=== PATIENT | female | born 1975 | race American Indian/Alaskan Native ===

== ENCOUNTER 2017-02-07 18:56 | Emergency (ER) | payer MEDICAID ==
[2017-02-07 21:13] LABS: Basophils % (Auto) 0.7 % (0.0-1.8); Eosinophils % (Auto) 1.7 % (0.0-4.3); Hematocrit 35.9 % (30.3-42.9); Hemoglobin 11.5 gm/dl (10.1-14.3); Mean Corpuscular HGB Conc 32 % (30-34); Mean Corpuscular Volume 80 fl (79-97); Platelet Count 359 K/mm3 (140-440); Red Blood Count 4.47 M/mm3 (3.65-5.03); Red Cell Distribution Width 14.6 % (13.2-15.2); White Blood Count 10.3 K/mm3 (4.5-11.0)
[2017-02-07 21:14] LABS: Mean Corpuscular Hemoglobin 26 pg (28-32)
[2017-02-07 21:31] LABS: Anion Gap 19 mmol/L; BUN/Creatinine Ratio 13.75; Blood Urea Nitrogen 11 mg/dL (7-17); Calcium 9.5 mg/dL (8.4-10.2); Carbon Dioxide 23 mmol/L (22-30); Chloride 98.6 mmol/L (98-107); Glucose 97 mg/dL (65-100); Potassium 3.9 mmol/L (3.6-5.0); Sodium 137 mmol/L (137-145)
[2017-02-07 21:57] LABS: Bilirubin,Urine NEG (Negative); Blood,Urine NEG (Negative); Ketones,Urine NEG (Negative); Leukocyte Esterase,Urine NEG (Negative); Mucus,Urine FEW /HPF; Nitrite,Urine NEG (Negative); Protein,Urine <15 mg/dL mg/dL (Negative); Urobilinogen,Urine < 2.0 mg/dL (<2.0)
[2017-02-07] MEDS ORDERED: BENADRYL IV ONE (23:06)
[2017-02-07] MEDS ORDERED: REGLAN IV ONE (23:06)
--- NOTE | 2017-02-08 00:45 | Emergency Department Report ---
ED General Adult HPI - General Chief complaint: Headache Stated complaint: HEADACHE/STIFF NECK BETWEEN BACK/CHEST Time Seen by Provider: 02/07/17 23:04 Source: patient Mode of arrival: Ambulatory Limitations: No Limitations - History of Present Illness Initial comments: Patient is a 41-year-old female presents with headache has been going on for the last 3 days it is an achy type pain she says it is from the back of her head to her neck. She states that it's a 7 out of 10 and radiates her chest nothing makes it better or worse. Patient states that when she woke up today she had a stiff neck is achy around the midline she has full range of motion in her neck. She denies having any fever. She states that sometimes when wakes up she has stiff neck. Stiff neck as a 4 out of 10 makes her neck worse and nothing makes it better. Patient has shows some [id number] medications without relief. - Related Data Home Medications Medication Instructions Recorded Confirmed Last Taken Amoxicillin [Trimox CAP] 500 mg PO TID 06/09/13 06/09/13 06/08/13 20:00 Losartan/Hydrochlorothiazide 1 each PO QDAY 04/22/15 04/22/15 04/22/15 [Hyzaar 100-12.5 TAB] Previous Rx's Medication Instructions Recorded Last Taken Type Amoxicillin/K Clav Tab [Augmentin 1 tab PO BID #20 tablet 06/09/13 Unknown Rx 875MG] Fluticasone Propionate [Flonase] 2 sprays NS DAILY #1 spray.susp 06/09/13 Unknown Rx Loratadine [Claritin] 10 mg PO DAILY #30 tablet 06/09/13 Unknown Rx Prednisone 40 mg PO QDAY #10 tablet 06/09/13 Unknown Rx Promethazine /Codeine 5 ml PO Q6H PRN #120 udc 06/09/13 Unknown Rx [Phenergan/Codeine 6.25-10 mg/5 ml] Ibuprofen [Motrin 800 MG tab] 800 mg PO Q8HR PRN #60 tablet 02/24/15 Unknown Rx HYDROcodone/APAP 10-325 [[place] 1 each PO Q8HR PRN #30 tablet 04/23/15 Unknown Rx 10/325] Methocarbamol [Robaxin TAB] 750 mg PO Q8H PRN #21 tablet 10/21/15 Unknown Rx Diazepam Tab [Valium] 2 mg PO TID PRN #12 tablet 06/27/15 Unknown Rx Methocarbamol [Robaxin TAB] 1,500 mg PO TID PRN #30 tab 06/27/15 Unknown Rx metroNIDAZOLE [Flagyl TAB] 500 mg PO Q12HR #14 tab 07/15/15 Unknown Rx traMADol [Ultram 50 MG tab] 50 mg PO Q6HR PRN #20 tablet 04/11/16 Unknown Rx Allergies Allergy/AdvReac Type Severity Reaction Status Date / Time ibuprofen Allergy Bleeding Verified 08/03/13 01:50 tramadol HCl [From Ultram] Allergy Vomiting Verified 04/12/13 08:00 ED Review of Systems ROS: Stated complaint: HEADACHE/STIFF NECK BETWEEN BACK/CHEST Other details as noted in HPI Constitutional: denies: chills, fever Eyes: denies: eye pain, eye discharge, vision change ENT: denies: ear pain, throat pain Respiratory: denies: cough, shortness of breath, wheezing Cardiovascular: denies: chest pain, palpitations Endocrine: no symptoms reported Gastrointestinal: denies: abdominal pain, nausea, diarrhea Genitourinary: denies: urgency, dysuria, discharge Musculoskeletal: denies: back pain, joint swelling, arthralgia Skin: denies: rash, lesions Neurological: headache Psychiatric: denies: anxiety, depression Hematological/Lymphatic: denies: easy bleeding, easy bruising ED Past Medical Hx - Past Medical History Previous Medical History?: Yes Hx Hypertension: Yes Hx GERD: Yes Hx Kidney Stones: Yes (stent placed 07-25-2013) Additional medical history: ovarian cyst - Surgical History Past Surgical History?: Yes Additional Surgical History: Lithotripsy, renal stent, Endometrial Oblation. Tubal ligation - Social History Smoking Status: Never Smoker Substance Use Type: None - Medications Home Medications: Home Medications Medication Instructions Recorded Confirmed Last Taken Type Amoxicillin [Trimox CAP] 500 mg PO TID 06/09/13 06/09/13 06/08/13 20:00 History Amoxicillin/K Clav Tab [Augmentin 1 tab PO BID #20 tablet 06/09/13 Unknown Rx 875MG] Fluticasone Propionate [Flonase] 2 sprays NS DAILY #1 spray.susp 06/09/13 Unknown Rx Loratadine [Claritin] 10 mg PO DAILY #30 tablet 06/09/13 Unknown Rx Prednisone 40 mg PO QDAY #10 tablet 06/09/13 Unknown Rx Promethazine /Codeine 5 ml PO Q6H PRN #120 udc 06/09/13 Unknown Rx [Phenergan/Codeine 6.25-10 mg/5 ml] Ibuprofen [Motrin 800 MG tab] 800 mg PO Q8HR PRN #60 tablet 02/24/15 Unknown Rx Losartan/Hydrochlorothiazide 1 each PO QDAY 04/22/15 04/22/15 04/22/15 History [Hyzaar 100-12.5 TAB] HYDROcodone/APAP 10-325 [[place] 1 each PO Q8HR PRN #30 tablet 04/23/15 Unknown Rx 10/325] Methocarbamol [Robaxin TAB] 750 mg PO Q8H PRN #21 tablet 04/23/15 Unknown Rx Diazepam Tab [Valium] 2 mg PO TID PRN #12 tablet 06/27/15 Unknown Rx Methocarbamol [Robaxin TAB] 1,500 mg PO TID PRN #30 tab 06/27/15 Unknown Rx metroNIDAZOLE [Flagyl TAB] 500 mg PO Q12HR #14 tab 07/15/15 Unknown Rx traMADol [Ultram 50 MG tab] 50 mg PO Q6HR PRN #20 tablet 04/11/16 Unknown Rx ED Physical Exam - General Limitations: No Limitations General appearance: alert, in no apparent distress - Head Head exam: Present: atraumatic, normocephalic - Eye Eye exam: Present: normal appearance - ENT ENT exam: Present: mucous membranes moist - Neck Neck exam: Present: normal inspection - Respiratory Respiratory exam: Present: normal lung sounds bilaterally. Absent: respiratory distress - Cardiovascular Cardiovascular Exam: Present: regular rate, normal rhythm. Absent: systolic murmur, diastolic murmur, rubs, gallop - GI/Abdominal GI/Abdominal exam: Present: soft, normal bowel sounds - Extremities Exam Extremities exam: Present: normal inspection - Back Exam Back exam: Present: normal inspection - Neurological Exam Neurological exam: Present: alert, oriented X3 - Psychiatric Psychiatric exam: Present: normal affect, normal mood - Skin Skin exam: Present: warm, dry, intact, normal color. Absent: rash ED Course Vital Signs 02/07/17 02/08/17 20:33 01:26 Temperature 99 F Pulse Rate 90 86 Respiratory 18 17 Rate Blood Pressure 193/126 Blood Pressure 147/101 [Left] O2 Sat by Pulse 99 99 Oximetry - Reevaluation(s) Reevaluation #1: 02/08/17 00:24 Patient is feeling better after IV intervention and she is no significant findings on blood work I will send patient home. ED Medical Decision Making - Lab Data Result diagrams: 02/07/17 20:58 02/07/17 20:58 Lab Results 02/07/17 02/07/17 02/07/17 Range/Units 20:58 20:58 20:58 WBC 10.3 (4.5-11.0) K/mm3 RBC 4.47 (3.65-5.03) M/mm3 Hgb 11.5 (10.1-14.3) gm/dl Hct 35.9 (30.3-42.9) % MCV 80 (79-97) fl MCH 26 L (28-32) pg MCHC 32 (30-34) % RDW 14.6 (13.2-15.2) % Plt Count 359 (140-440) K/mm3 Lymph % (Auto) 38.9 H (13.4-35.0) % [place] % (Auto) 5.2 (0.0-7.3) % Eos % (Auto) 1.7 (0.0-4.3) % Baso % (Auto) 0.7 (0.0-1.8) % Lymph # 4.0 (1.2-5.4) K/mm3 [place] # 0.5 (0.0-0.8) K/mm3 Eos # 0.2 (0.0-0.4) K/mm3 Baso # 0.1 (0.0-0.1) K/mm3 Seg Neutrophils % 53.5 (40.0-70.0) % Seg Neutrophils # 5.5 (1.8-7.7) K/mm3 Sodium 137 (137-145) mmol/L Potassium 3.9 (3.6-5.0) mmol/L Chloride 98.6 (98-107) mmol/L Carbon Dioxide 23 (22-30) mmol/L Anion Gap 19 mmol/L BUN 11 (7-17) mg/dL Creatinine 0.8 (0.7-1.2) mg/dL Estimated GFR > 60 ml/min BUN/Creatinine Ratio 13.75 % Glucose 97 (65-100) mg/dL Calcium 9.5 (8.4-10.2) mg/dL Troponin T < 0.010 (0.00-0.029) ng/mL HCG, Qual Negative (Negative) Urine Color (Yellow) Urine Turbidity (Clear) Urine pH (5.0-7.0) Ur Specific Chloe (1.003-1.030) Urine Protein (Negative) mg/dL Urine Glucose (UA) (Negative) mg/dL Urine Ketones (Negative) mg/dL Urine Blood (Negative) Urine Nitrite (Negative) Urine Bilirubin (Negative) Urine Urobilinogen (<2.0) mg/dL Ur Leukocyte Esterase (Negative) Urine WBC (Auto) (0.0-6.0) /HPF Urine RBC (Auto) (0.0-6.0) /HPF U Epithel Cells (Auto) (0-13.0) /HPF Urine Mucus /HPF 02/07/17 02/08/17 Range/Units 21:30 01:07 WBC (4.5-11.0) K/mm3 RBC (3.65-5.03) M/mm3 Hgb (10.1-14.3) gm/dl Hct (30.3-42.9) % MCV (79-97) fl MCH (28-32) pg MCHC (30-34) % RDW (13.2-15.2) % Plt Count (140-440) K/mm3 Lymph % (Auto) (13.4-35.0) % [place] % (Auto) (0.0-7.3) % Eos % (Auto) (0.0-4.3) % Baso % (Auto) (0.0-1.8) % Lymph # (1.2-5.4) K/mm3 [place] # (0.0-0.8) K/mm3 Eos # (0.0-0.4) K/mm3 Baso # (0.0-0.1) K/mm3 Seg Neutrophils % (40.0-70.0) % Seg Neutrophils # (1.8-7.7) K/mm3 Sodium (137-145) mmol/L Potassium (3.6-5.0) mmol/L Chloride (98-107) mmol/L Carbon Dioxide (22-30) mmol/L Anion Gap mmol/L BUN (7-17) mg/dL Creatinine (0.7-1.2) mg/dL Estimated GFR ml/min BUN/Creatinine Ratio % Glucose (65-100) mg/dL Calcium (8.4-10.2) mg/dL Troponin T < 0.010 (0.00-0.029) ng/mL HCG, Qual (Negative) Urine Color Straw (Yellow) Urine Turbidity Clear (Clear) Urine pH 6.0 (5.0-7.0) Ur Specific [place] 1.013 (1.003-1.030) Urine Protein <15 mg/dl (Negative) mg/dL Urine Glucose (UA) Neg (Negative) mg/dL Urine Ketones Neg (Negative) mg/dL Urine Blood Neg (Negative) Urine Nitrite Neg (Negative) Urine Bilirubin Neg (Negative) Urine Urobilinogen < 2.0 (<2.0) mg/dL Ur Leukocyte Esterase Neg (Negative) Urine WBC (Auto) 1.0 (0.0-6.0) /HPF Urine RBC (Auto) 1.0 (0.0-6.0) /HPF U Epithel Cells (Auto) 1.0 (0-13.0) /HPF Urine Mucus Few /HPF - Radiology Data Radiology results: report reviewed, image reviewed Chest x-ray shows no acute pulmonary disease - Medical Decision Making Chief medical diagnosis: Tension headache Differential local diagnosis: Migraine headache,Cluster headache, hyponatremia I will get CBC, CMP, urinalysis, urine iv reglan, iv fluids and iv benadryl. Patient's better after IV Reglan and IV Benadryl. Patient's symptoms are most likely symptoms of a tension headache. She's had headaches like this before in the past. Patient has no neurologic deficits. Indication showed decision- making to send patient home. Initial verbal discharge instructions were given. Critical care attestation.: If time is entered above; I have spent that time in minutes in the direct care of this critically ill patient, excluding procedure time. ED Disposition Clinical Impression: Tension headache Disposition: DC-01 TO HOME OR SELFCARE Is pt being admited?: No Does the pt Need Aspirin: No Condition: Stable Instructions: Tension Headache (ED) Referrals: BARBARA HUERTA MD [Primary Care Provider] - 3-5 Days
[2017-02-08 01:27] VITALS: BP 147/101
--- NOTE | 2017-02-08 07:38 | XRay Report ---
ROUTINE CHEST, TWO VIEWS: HISTORY: chest pain. The trachea, heart, mediastinal contour, lung howard and bony thorax are unremarkable. IMPRESSION: Unremarkable chest x-ray. No significant change since 06/27/15.
== END 2017-02-08 01:25 | disposition home or self-care (01) ==
LOC: ED 18:56
DX: G44.209 Tension-type headache, unspecified, not intractable (principal); I10 Essential (primary) hypertension; K21.9 Gastro-esophageal reflux disease without esophagitis; Z88.6 Allergy status to analgesic agent
CPT/HCPCS: 36415; 71020; 80048; 81001; 84484; 84703; 85025; 93005; 93010; 96374; 96375; 99285; J1200; J2765

== ENCOUNTER 2017-04-28 18:18 | Emergency (ER) | payer MEDICAID ==
[2017-04-28 18:44] VITALS: BP 175/100
[2017-04-28 19:34] LABS: Basophils % (Auto) 0.5 % (0.0-1.8); Hematocrit 35.7 % (30.3-42.9); Hemoglobin 11.8 gm/dl (10.1-14.3); Mean Corpuscular HGB Conc 33 % (30-34); Mean Corpuscular Hemoglobin 26 pg (28-32); Mean Corpuscular Volume 80 fl (79-97); Platelet Count 362 K/mm3 (140-440); Red Blood Count 4.45 M/mm3 (3.65-5.03); Red Cell Distribution Width 14.9 % (13.2-15.2); White Blood Count 11.8 K/mm3 (4.5-11.0)
[2017-04-28 19:57] LABS: Anion Gap 21 mmol/L; BUN/Creatinine Ratio 14; Blood Urea Nitrogen 11 mg/dL (7-17); Calcium 9.5 mg/dL (8.4-10.2); Carbon Dioxide 22 mmol/L (22-30); Chloride 99.3 mmol/L (98-107); Glucose 93 mg/dL (65-100); Potassium 3.8 mmol/L (3.6-5.0); Sodium 138 mmol/L (137-145)
== END 2017-04-28 22:10 | disposition left against medical advice (07) ==
LOC: ED 18:18
DX: R51 Headache (principal); R19.7 Diarrhea, unspecified; Z53.21 Procedure and treatment not carried out due to patient leaving prior to being seen by health care provider
CPT/HCPCS: 36415; 80048; 82962; 84484; 85025; 93005; 93010

== ENCOUNTER 2017-06-14 09:33 | Emergency (ER) | payer MEDICAID ==
[2017-06-14 10:01] VITALS: BP 149/101
--- NOTE | 2017-06-14 11:15 | Emergency Department Report ---
ED General Adult HPI - General Chief complaint: Upper Respiratory Infection Stated complaint: COUGH Time Seen by Provider: 06/14/17 10:11 Source: patient Mode of arrival: Ambulatory Limitations: No Limitations - History of Present Illness Initial comments: 41 year old female is in the ED complaining of sinus congestion, sore throat, dry intermittent cough for the past 5 days. States that she's been taking over- the-counter medication including NyQuil with minimal relief. And states now she has substernal chest pain associated with a dry cough. Denies fever, chills , shortness of breath, abdominal pain -: Gradual, days(s) (5) - Related Data Home Medications Medication Instructions Recorded Confirmed Last Taken Amoxicillin [Trimox CAP] 500 mg PO TID 06/09/13 06/09/13 06/08/13 20:00 Losartan/Hydrochlorothiazide 1 each PO QDAY 04/22/15 04/22/15 04/22/15 [Hyzaar 100-12.5 TAB] Previous Rx's Medication Instructions Recorded Last Taken Type Amoxicillin/K Clav Tab [Augmentin 1 tab PO BID #20 tablet 06/09/13 Unknown Rx 875MG] Fluticasone Propionate [Flonase] 2 sprays NS DAILY #1 spray.susp 06/09/13 Unknown Rx Loratadine [Claritin] 10 mg PO DAILY #30 tablet 06/09/13 Unknown Rx Prednisone 40 mg PO QDAY #10 tablet 06/09/13 Unknown Rx Promethazine /Codeine 5 ml PO Q6H PRN #120 udc 06/09/13 Unknown Rx [Phenergan/Codeine 6.25-10 mg/5 ml] Ibuprofen [Motrin 800 MG tab] 800 mg PO Q8HR PRN #60 tablet 02/24/15 Unknown Rx HYDROcodone/APAP 10-325 [[place] 1 each PO Q8HR PRN #30 tablet 04/23/15 Unknown Rx 10/325] Methocarbamol [Robaxin TAB] 750 mg PO Q8H PRN #21 tablet 04/23/15 Unknown Rx Diazepam Tab [Valium] 2 mg PO TID PRN #12 tablet 06/27/15 Unknown Rx Methocarbamol [Robaxin TAB] 1,500 mg PO TID PRN #30 tab 06/27/15 Unknown Rx metroNIDAZOLE [Flagyl TAB] 500 mg PO Q12HR #14 tab 07/15/15 Unknown Rx traMADol [Ultram 50 MG tab] 50 mg PO Q6HR PRN #20 tablet 04/11/16 Unknown Rx ALBUTEROL Inhaler [ProAir HFA 2 puff IH QID PRN #1 inhalation 06/14/17 Unknown Rx Inhaler] Azithromycin [Zithromax Z-SHU] 250 mg PO QDAY #6 tablet 06/14/17 Unknown Rx Codeine Phosphate/Guaifenesin 5 ml PO QDAY #120 liquid 06/14/17 Unknown Rx [Guaifen-Codeine 100-10 mg/5 ml] Prednisone [predniSONE 10 mg 10 mg PO .TAPER #1 tab.ds.pk 06/14/17 Unknown Rx (6-Day Pack, 21 Tabs)] Allergies Allergy/AdvReac Type Severity Reaction Status Date / Time ibuprofen Allergy Bleeding Verified 08/03/13 01:50 tramadol HCl [From Ultram] Allergy Vomiting Verified 04/12/13 08:00 ED Review of Systems ROS: Stated complaint: COUGH Other details as noted in HPI Constitutional: denies: chills, fever Eyes: denies: eye pain, eye discharge, vision change ENT: throat pain, congestion. denies: ear pain Respiratory: cough. denies: shortness of breath, wheezing Cardiovascular: denies: chest pain, palpitations Endocrine: no symptoms reported Gastrointestinal: denies: abdominal pain, nausea, diarrhea Genitourinary: denies: urgency, dysuria, discharge Musculoskeletal: denies: back pain, joint swelling, arthralgia Skin: denies: rash, lesions Neurological: denies: headache, weakness, paresthesias Psychiatric: denies: anxiety, depression Hematological/Lymphatic: denies: easy bleeding, easy bruising ED Past Medical Hx - Past Medical History Previous Medical History?: Yes Hx Hypertension: Yes Hx Diabetes: Yes Hx GERD: Yes Hx Kidney Stones: Yes (stent placed 07-25-2013) Additional medical history: ovarian cyst - Surgical History Past Surgical History?: Yes Additional Surgical History: Lithotripsy, renal stent, Endometrial Oblation. Tubal ligation - Social History Smoking Status: Never Smoker Substance Use Type: Alcohol, Prescribed - Medications Home Medications: Home Medications Medication Instructions Recorded Confirmed Last Taken Type Amoxicillin [Trimox CAP] 500 mg PO TID 12/07/13 12/07/13 12/06/13 20:00 History Amoxicillin/K Clav Tab [Augmentin 1 tab PO BID #20 tablet 06/09/13 Unknown Rx 875MG] Fluticasone Propionate [Flonase] 2 sprays NS DAILY #1 spray.susp 06/09/13 Unknown Rx Loratadine [Claritin] 10 mg PO DAILY #30 tablet 06/09/13 Unknown Rx Prednisone 40 mg PO QDAY #10 tablet 06/09/13 Unknown Rx Promethazine /Codeine 5 ml PO Q6H PRN #120 udc 06/09/13 Unknown Rx [Phenergan/Codeine 6.25-10 mg/5 ml] Ibuprofen [Motrin 800 MG tab] 800 mg PO Q8HR PRN #60 tablet 02/24/15 Unknown Rx Losartan/Hydrochlorothiazide 1 each PO QDAY 04/22/15 04/22/15 04/22/15 History [Hyzaar 100-12.5 TAB] HYDROcodone/APAP 10-325 [[place] 1 each PO Q8HR PRN #30 tablet 04/23/15 Unknown Rx 10/325] Methocarbamol [Robaxin TAB] 750 mg PO Q8H PRN #21 tablet 04/23/15 Unknown Rx Diazepam Tab [Valium] 2 mg PO TID PRN #12 tablet 06/27/15 Unknown Rx Methocarbamol [Robaxin TAB] 1,500 mg PO TID PRN #30 tab 06/27/15 Unknown Rx metroNIDAZOLE [Flagyl TAB] 500 mg PO Q12HR #14 tab 07/15/15 Unknown Rx traMADol [Ultram 50 MG tab] 50 mg PO Q6HR PRN #20 tablet 04/11/16 Unknown Rx ALBUTEROL Inhaler [ProAir HFA 2 puff IH QID PRN #1 inhalation 06/14/17 Unknown Rx Inhaler] Azithromycin [Zithromax Z-SHU] 250 mg PO QDAY #6 tablet 06/14/17 Unknown Rx Codeine Phosphate/Guaifenesin 5 ml PO QDAY #120 liquid 06/14/17 Unknown Rx [Guaifen-Codeine 100-10 mg/5 ml] Prednisone [predniSONE 10 mg 10 mg PO .TAPER #1 tab.ds.pk 06/14/17 Unknown Rx (6-Day Pack, 21 Tabs)] ED Physical Exam - General Limitations: No Limitations General appearance: alert, in no apparent distress - Head Head exam: Present: atraumatic, normocephalic - Eye Eye exam: Present: normal appearance - ENT ENT exam: Present: normal orophraynx, mucous membranes moist - Neck Neck exam: Present: normal inspection - Respiratory Respiratory exam: Present: normal lung sounds bilaterally. Absent: respiratory distress, wheezes, rales, rhonchi, stridor - Cardiovascular Cardiovascular Exam: Present: regular rate, normal rhythm. Absent: systolic murmur, diastolic murmur, rubs, gallop - GI/Abdominal GI/Abdominal exam: Present: soft, normal bowel sounds - Extremities Exam Extremities exam: Present: normal inspection - Back Exam Back exam: Present: normal inspection - Neurological Exam Neurological exam: Present: alert, oriented X3 - Psychiatric Psychiatric exam: Present: normal affect, normal mood - Skin Skin exam: Present: warm, dry, intact, normal color. Absent: rash ED Course Vital Signs 06/14/17 09:58 Temperature 98.7 F Pulse Rate 98 H Respiratory 20 Rate Blood Pressure 149/101 O2 Sat by Pulse 98 Oximetry ED Medical Decision Making - Medical Decision Making patient is resting comfortably. appears to be consistent with URI and bronchitis. VSS for DC. NAD at this time. Critical care attestation.: If time is entered above; I have spent that time in minutes in the direct care of this critically ill patient, excluding procedure time. ED Disposition Clinical Impression: URI, acute, Acute bronchitis Disposition: DC- TO HOME OR SELFCARE Is pt being admited?: No Does the pt Need Aspirin: No Condition: Good Instructions: Acute Bronchitis (ED) Prescriptions: ALBUTEROL Inhaler [ProAir HFA Inhaler] 2 puff IH QID PRN #1 inhalation PRN Reason: Shortness Of Breath Azithromycin [Zithromax Z-SHU] 250 mg PO QDAY #6 tablet Codeine Phosphate/Guaifenesin [Guaifen-Codeine 100-10 mg/5 ml] 5 ml PO QDAY # 120 liquid Prednisone [predniSONE 10 mg (6-Day Pack, 21 Tabs)] 10 mg PO .TAPER #1 tab.ds.pk Referrals: WILMA HANNAH MD [Primary Care Provider] - 3-5 Days Forms: Work/School Release Form(ED) Time of Disposition: 11:16
== END 2017-06-14 11:27 | disposition home or self-care (01) ==
LOC: ED 09:33
DX: J20.9 Acute bronchitis, unspecified (principal); J06.9 Acute upper respiratory infection, unspecified; I10 Essential (primary) hypertension; E11.9 Type 2 diabetes mellitus without complications; K21.9 Gastro-esophageal reflux disease without esophagitis; Z98.51 Tubal ligation status; Z88.8 Allergy status to other drugs, medicaments and biological substances
CPT/HCPCS: 99282

== ENCOUNTER 2017-09-17 15:23 | Emergency (ER) | payer MEDICAID ==
[2017-09-17 15:35] VITALS: BP 158/106
[2017-09-17 16:13] LABS: Bilirubin,Urine NEG (Negative); Blood,Urine NEG (Negative); Color,Urine Yellow (Yellow); Mucus,Urine FEW /HPF; Protein,Urine <15 mg/dL mg/dL (Negative); Urobilinogen,Urine < 2.0 mg/dL (<2.0)
[2017-09-17 16:30] LABS: Hematocrit 36.6 % (30.3-42.9); Hemoglobin 11.7 gm/dl (10.1-14.3); Mean Corpuscular HGB Conc 32 % (30-34); Mean Corpuscular Hemoglobin 26 pg (28-32); Mean Corpuscular Volume 81 fl (79-97); Platelet Count 391 K/mm3 (140-440); Red Blood Count 4.49 M/mm3 (3.65-5.03); Red Cell Distribution Width 14.4 % (13.2-15.2)
[2017-09-17 16:36] LABS: BUN/Creatinine Ratio 13; Blood Urea Nitrogen 9 mg/dL (7-17); Calcium 9.2 mg/dL (8.4-10.2); Hemolysis Index 32
== END 2017-09-17 15:57 | disposition left against medical advice (07) ==
LOC: ED 15:23
DX: R51 Headache (principal); Z53.21 Procedure and treatment not carried out due to patient leaving prior to being seen by health care provider
CPT/HCPCS: 36415; 80048; 81001; 85027

== ENCOUNTER 2017-12-18 16:04 | Emergency (ER) | payer MEDICAID ==
[2017-12-18 16:15] VITALS: BP 159/99
[2017-12-18] MEDS ORDERED: TYLENOL PO ONE (16:49)
--- NOTE | 2017-12-18 16:55 | Emergency Department Report ---
ED ENT HPI - General Chief complaint: Dental/Oral Stated complaint: TOOTHPAIN Time Seen by Provider: 12/18/17 16:48 Source: patient Mode of arrival: Ambulatory Limitations: No Limitations - History of Present Illness Initial comments: This is a 42-year-old female nontoxic, well nourished in appearance, no acute signs of distress presents to the ED with c/o of left upper toothache 4 weeks. Patient stated has seen her deniest and was prescribed amoxicillin and was instructed to return for a procedure but patient never came in. Patient stated that pain has reoccurred. Patient stated that pain radiates from his job to his left side of head. Patient otherwise denies any head trauma. Patient describes toothache as aching level of 8 out of 10. Patient denies any facial swelling. Patient denies any numbness, tingling, fever, chills, headache, stiff neck, abdominal pain, chest pain, shortness of breath. Patient states allergies to ibuprofen and tramadol. Past medical history includes GERD, diabetes hypertension kidney stones. MD complaint: tooth pain -: week(s) (4) Location: tooth # 1 - pain here Severity: mild Severity scale (0 -10): 8 Quality: aching Consistency: constant Improves with: none Worsens with: none Associated Symptoms: gum swelling, toothache. denies: fever, cough, pain with swallowing, sore throat, tinnitus, hearing loss, discharge from ear, rhinorrhea - Related Data Home Medications Medication Instructions Recorded Confirmed Last Taken Amoxicillin [Trimox CAP] 500 mg PO TID 06/09/13 06/09/13 06/08/13 20:00 Losartan/Hydrochlorothiazide 1 each PO QDAY 04/22/15 04/22/15 04/22/15 [Hyzaar 100-12.5 TAB] Previous Rx's Medication Instructions Recorded Last Taken Type Amoxicillin/K Clav Tab [Augmentin 1 tab PO BID #20 tablet 06/09/13 Unknown Rx 875MG] Fluticasone Propionate [Flonase] 2 sprays NS DAILY #1 spray.susp 06/09/13 Unknown Rx Loratadine [Claritin] 10 mg PO DAILY #30 tablet 06/09/13 Unknown Rx Prednisone 40 mg PO QDAY #10 tablet 06/09/13 Unknown Rx Promethazine /Codeine 5 ml PO Q6H PRN #120 udc 06/09/13 Unknown Rx [Phenergan/Codeine 6.25-10 mg/5 ml] Ibuprofen [Motrin 800 MG tab] 800 mg PO Q8HR PRN #60 tablet 02/24/15 Unknown Rx HYDROcodone/APAP 10-325 [[place] 1 each PO Q8HR PRN #30 tablet 04/23/15 Unknown Rx 10/325] Methocarbamol [Robaxin TAB] 750 mg PO Q8H PRN #21 tablet 04/23/15 Unknown Rx Diazepam Tab [Valium] 2 mg PO TID PRN #12 tablet 06/27/15 Unknown Rx Methocarbamol [Robaxin TAB] 1,500 mg PO TID PRN #30 tab 06/27/15 Unknown Rx metroNIDAZOLE [Flagyl TAB] 500 mg PO Q12HR #14 tab 07/15/15 Unknown Rx traMADol [Ultram 50 MG tab] 50 mg PO Q6HR PRN #20 tablet 04/11/16 Unknown Rx ALBUTEROL Inhaler [ProAir HFA 2 puff IH QID PRN #1 inhalation 06/14/17 Unknown Rx Inhaler] Azithromycin [Zithromax Z-SHU] 250 mg PO QDAY #6 tablet 06/14/17 Unknown Rx Codeine Phosphate/Guaifenesin 5 ml PO QDAY #120 liquid 06/14/17 Unknown Rx [Guaifen-Codeine 100-10 mg/5 ml] Prednisone [predniSONE 10 mg 10 mg PO .TAPER #1 tab.ds.pk 06/14/17 Unknown Rx (6-Day Pack, 21 Tabs)] Acetaminophen/Codeine [Tylenol 1 tab PO Q6H PRN #14 tab 12/18/17 Unknown Rx /Codeine # 3 tab] Amoxicillin/K Clav Tab [Augmentin 1 tab PO Q12HR #20 tab 12/18/17 Unknown Rx 875 mg] Chlorhexidine Mouthwash [Peridex] 15 ml MM BID #1 bottle 12/18/17 Unknown Rx Allergies Allergy/AdvReac Type Severity Reaction Status Date / Time ibuprofen Allergy Bleeding Verified 08/03/13 01:50 tramadol HCl [From Ultram] Allergy Vomiting Verified 04/12/13 08:00 ED Dental HPI - General Chief complaint: Dental/Oral Stated complaint: TOOTHPAIN Time Seen by Provider: 12/18/17 16:48 Source: patient Mode of arrival: Ambulatory Limitations: No Limitations - Related Data Home Medications Medication Instructions Recorded Confirmed Last Taken Amoxicillin [Trimox CAP] 500 mg PO TID 06/09/13 06/09/13 06/08/13 20:00 Losartan/Hydrochlorothiazide 1 each PO QDAY 04/22/15 04/22/15 04/22/15 [Hyzaar 100-12.5 TAB] Previous Rx's Medication Instructions Recorded Last Taken Type Amoxicillin/K Clav Tab [Augmentin 1 tab PO BID #20 tablet 06/09/13 Unknown Rx 875MG] Fluticasone Propionate [Flonase] 2 sprays NS DAILY #1 spray.susp 06/09/13 Unknown Rx Loratadine [Claritin] 10 mg PO DAILY #30 tablet 06/09/13 Unknown Rx Prednisone 40 mg PO QDAY #10 tablet 06/09/13 Unknown Rx Promethazine /Codeine 5 ml PO Q6H PRN #120 udc 06/09/13 Unknown Rx [Phenergan/Codeine 6.25-10 mg/5 ml] Ibuprofen [Motrin 800 MG tab] 800 mg PO Q8HR PRN #60 tablet 02/24/15 Unknown Rx HYDROcodone/APAP 10-325 [[place] 1 each PO Q8HR PRN #30 tablet 04/23/15 Unknown Rx 10/325] Methocarbamol [Robaxin TAB] 750 mg PO Q8H PRN #21 tablet 04/23/15 Unknown Rx Diazepam Tab [Valium] 2 mg PO TID PRN #12 tablet 06/27/15 Unknown Rx Methocarbamol [Robaxin TAB] 1,500 mg PO TID PRN #30 tab 06/27/15 Unknown Rx metroNIDAZOLE [Flagyl TAB] 500 mg PO Q12HR #14 tab 07/15/15 Unknown Rx traMADol [Ultram 50 MG tab] 50 mg PO Q6HR PRN #20 tablet 04/11/16 Unknown Rx ALBUTEROL Inhaler [ProAir HFA 2 puff IH QID PRN #1 inhalation 06/14/17 Unknown Rx Inhaler] Azithromycin [Zithromax Z-SHU] 250 mg PO QDAY #6 tablet 06/14/17 Unknown Rx Codeine Phosphate/Guaifenesin 5 ml PO QDAY #120 liquid 06/14/17 Unknown Rx [Guaifen-Codeine 100-10 mg/5 ml] Prednisone [predniSONE 10 mg 10 mg PO .TAPER #1 tab.ds.pk 06/14/17 Unknown Rx (6-Day Pack, 21 Tabs)] Acetaminophen/Codeine [Tylenol 1 tab PO Q6H PRN #14 tab 12/18/17 Unknown Rx /Codeine # 3 tab] Amoxicillin/K Clav Tab [Augmentin 1 tab PO Q12HR #20 tab 12/18/17 Unknown Rx 875 mg] Chlorhexidine Mouthwash [Peridex] 15 ml MM BID #1 bottle 12/18/17 Unknown Rx Allergies Allergy/AdvReac Type Severity Reaction Status Date / Time ibuprofen Allergy Bleeding Verified 08/03/13 01:50 tramadol HCl [From Ultram] Allergy Vomiting Verified 04/12/13 08:00 ED Review of Systems ROS: Stated complaint: TOOTHPAIN Other details as noted in HPI Constitutional: denies: chills, fever Eyes: denies: eye pain, eye discharge, vision change ENT: dental pain. denies: ear pain, throat pain Respiratory: denies: cough, shortness of breath, wheezing Cardiovascular: denies: chest pain, palpitations Endocrine: no symptoms reported Gastrointestinal: denies: abdominal pain, nausea, diarrhea Genitourinary: denies: urgency, dysuria, discharge Musculoskeletal: denies: back pain, joint swelling, arthralgia Skin: denies: rash, lesions Neurological: denies: headache, weakness, paresthesias Psychiatric: denies: anxiety, depression Hematological/Lymphatic: denies: easy bleeding, easy bruising ED Past Medical Hx - Past Medical History Hx Hypertension: Yes Hx Diabetes: Yes Hx GERD: Yes Hx Kidney Stones: Yes (stent placed 07-25-2013) Hx Psychiatric Treatment: Yes (anxiety) Additional medical history: ovarian cyst - Surgical History Additional Surgical History: Lithotripsy, renal stent, Endometrial Oblation. Tubal ligation - Social History Smoking Status: Never Smoker Substance Use Type: None - Medications Home Medications: Home Medications Medication Instructions Recorded Confirmed Last Taken Type Amoxicillin [Trimox CAP] 500 mg PO TID 06/09/13 06/09/13 06/08/13 20:00 History Amoxicillin/K Clav Tab [Augmentin 1 tab PO BID #20 tablet 06/09/13 Unknown Rx 875MG] Fluticasone Propionate [Flonase] 2 sprays NS DAILY #1 spray.susp 06/09/13 Unknown Rx Loratadine [Claritin] 10 mg PO DAILY #30 tablet 06/09/13 Unknown Rx Prednisone 40 mg PO QDAY #10 tablet 06/09/13 Unknown Rx Promethazine /Codeine 5 ml PO Q6H PRN #120 udc 06/09/13 Unknown Rx [Phenergan/Codeine 6.25-10 mg/5 ml] Ibuprofen [Motrin 800 MG tab] 800 mg PO Q8HR PRN #60 tablet 02/24/15 Unknown Rx Losartan/Hydrochlorothiazide 1 each PO QDAY 04/22/15 04/22/15 04/22/15 History [Hyzaar 100-12.5 TAB] HYDROcodone/APAP 10-325 [[place] 1 each PO Q8HR PRN #30 tablet 04/23/15 Unknown Rx 10/325] Methocarbamol [Robaxin TAB] 750 mg PO Q8H PRN #21 tablet 04/23/15 Unknown Rx Diazepam Tab [Valium] 2 mg PO TID PRN #12 tablet 06/27/15 Unknown Rx Methocarbamol [Robaxin TAB] 1,500 mg PO TID PRN #30 tab 06/27/15 Unknown Rx metroNIDAZOLE [Flagyl TAB] 500 mg PO Q12HR #14 tab 07/15/15 Unknown Rx traMADol [Ultram 50 MG tab] 50 mg PO Q6HR PRN #20 tablet 04/11/16 Unknown Rx ALBUTEROL Inhaler [ProAir HFA 2 puff IH QID PRN #1 inhalation 06/14/17 Unknown Rx Inhaler] Azithromycin [Zithromax Z-SHU] 250 mg PO QDAY #6 tablet 06/14/17 Unknown Rx Codeine Phosphate/Guaifenesin 5 ml PO QDAY #120 liquid 06/14/17 Unknown Rx [Guaifen-Codeine 100-10 mg/5 ml] Prednisone [predniSONE 10 mg 10 mg PO .TAPER #1 tab.ds.pk 06/14/17 Unknown Rx (6-Day Pack, 21 Tabs)] Acetaminophen/Codeine [Tylenol 1 tab PO Q6H PRN #14 tab 12/18/17 Unknown Rx /Codeine # 3 tab] Amoxicillin/K Clav Tab [Augmentin 1 tab PO Q12HR #20 tab 12/18/17 Unknown Rx 875 mg] Chlorhexidine Mouthwash [Peridex] 15 ml MM BID #1 bottle 12/18/17 Unknown Rx ED Physical Exam - General Limitations: No Limitations General appearance: alert, in no apparent distress - Head Head exam: Present: atraumatic, normocephalic - Eye Eye exam: Present: normal appearance Pupils: Present: normal accommodation - ENT ENT exam: Present: mucous membranes moist, TM's normal bilaterally, normal external ear exam - Expanded ENT Exam Expanded Ear exam: Present: normal external inspection Mouth exam: Present: normal external inspection, tongue normal. Absent: drooling, trismus, muffled voice, tongue elevation, laceration Teeth exam: Present: dental caries, fractured tooth #, dental tenderness #, gingival enlargement, other (No facial swelling. ) Throat exam: Positive: normal inspection, other (Uvula midline. ). Negative: tonsillar erythema, tonsillomegaly, tonsillar exudate, R peritonsillar mass, L peritonsillar mass - Neck Neck exam: Present: normal inspection, full ROM. Absent: tenderness, meningismus, lymphadenopathy - Respiratory Respiratory exam: Present: normal lung sounds bilaterally. Absent: respiratory distress, wheezes, rales, rhonchi, stridor, chest wall tenderness, accessory muscle use, decreased breath sounds, prolonged expiratory - Cardiovascular Cardiovascular Exam: Present: regular rate, normal rhythm, normal heart sounds. Absent: bradycardia, tachycardia, irregular rhythm, systolic murmur, diastolic murmur, rubs, gallop - GI/Abdominal GI/Abdominal exam: Present: soft, normal bowel sounds - Extremities Exam Extremities exam: Present: normal inspection, normal capillary refill - Back Exam Back exam: Present: normal inspection, full ROM - Neurological Exam Neurological exam: Present: alert, oriented X3 - Psychiatric Psychiatric exam: Present: normal affect, normal mood - Skin Skin exam: Present: warm, dry, intact, normal color. Absent: rash ED Course Vital Signs 12/18/17 16:07 Temperature 98.7 F Pulse Rate 82 Respiratory 17 Rate Blood Pressure 159/99 O2 Sat by Pulse 99 Oximetry - Reevaluation(s) Reevaluation #1: 12/18/17 16:53 Patient is speaking in full sentences with no signs of distress noted. Critical care attestation.: If time is entered above; I have spent that time in minutes in the direct care of this critically ill patient, excluding procedure time. ED Disposition Clinical Impression: Dental caries, Gingivitis Disposition: - TO HOME OR SELFCARE Is pt being admited?: No Does the pt Need Aspirin: No Condition: Stable Instructions: Dental Caries (ED), Gingivitis (ED), Acetaminophen/Codeine (By mouth) Additional Instructions: Follow-up with a dentist in 3-5 days or if symptoms worsen and continue return to emergency room as soon as possible. Do not operate any machinery while taking Tylenol with codeine as this may cause drowsiness. Prescriptions: Acetaminophen/Codeine [Tylenol /Codeine # 3 tab] 1 tab PO Q6H PRN #14 tab PRN Reason: Pain Amoxicillin/K Clav Tab [Augmentin 875 mg] 1 tab PO Q12HR #20 tab Chlorhexidine Mouthwash [Peridex] 15 ml MM BID #1 bottle Referrals: BARBARA HUERTA MD [Primary Care Provider] - 3-5 Days PRIMARY CARE, [Referring] - 3-5 Days CORNELIUS MCCONNELL MD [Staff Physician] - 3-5 Days [facility] [Outside] - 3-5 Days Forms: Work/School Release Form(ED)
== END 2017-12-18 17:42 | disposition home or self-care (01) ==
LOC: ED 16:04
DX: K05.10 Chronic gingivitis, plaque induced (principal); K02.9 Dental caries, unspecified; I10 Essential (primary) hypertension; E11.9 Type 2 diabetes mellitus without complications; K21.9 Gastro-esophageal reflux disease without esophagitis; F41.9 Anxiety disorder, unspecified; Z98.51 Tubal ligation status; Z88.8 Allergy status to other drugs, medicaments and biological substances
CPT/HCPCS: 99282

== ENCOUNTER 2018-03-19 15:56 | Emergency (ER) | payer MEDICAID ==
--- NOTE | 2018-03-19 16:24 | Emergency Department Report ---
ED Headache HPI - General Chief Complaint: Sore Throat Stated Complaint: SOB/SORE THROAT/EARS BURNING Time Seen by Provider: 03/19/18 16:07 Source: patient - History of Present Illness Initial Comments: This is a 42-year-old female who reports she has been having elevated blood pressure and headache to the back of her head over the last 2 weeks. She says she has also had a sore throats, nasal congestion runny nose and slight cough, bilateral earache with clogged sensation. That started about a week ago. Patient denies any nausea or vomiting. Denies any drooling. Denies any shortness of breath or chest pain. She reports that she is having some blurred vision on and off. But denies any decrease in vision or any eye pain. Denies any dizziness. Patient has a history of diabetes, GERD and hypertension. History of anxiety and kidney stones with stent. Her pain to her head, throat and ears ranges from 7 to 10/10. She says she took [id number] medication but it is not helping. Patient states she is on Norris sorted and HCTZ and her primary care doctor was supposed to increase her blood pressure medication but did not call her back. Pain is intermittent, pain to the back of her head she said feels like pressure, pain to throat is sore and both ears aching. Denies any fever or chills Timing/Duration: increasing, waxing and waning, other (2 weeks) Quality: severe, achy, pressure Head Injury Location: parietal Recent Head Trauma: occasional headaches Modifying Factors: improves with: movement Associated Symptoms: nasal congestion, nasal drainage, sinus infection, vision changes. denies: confusion, fatigue, facial pain, fever/chills, flushing, loss of consciousness, nausea/vomiting, numbness in legs/feet, rash, seizures, stiff neck, weakness Allergies/Adverse Reactions: Allergies ibuprofen Allergy (Verified 08/03/13 01:50) Bleeding tramadol HCl [From Ultram] Allergy (Verified 04/12/13 08:00) Vomiting Home Medications: Ambulatory Orders Amoxicillin [Trimox CAP] 500 mg PO TID 06/09/13 Amoxicillin/K Clav Tab [Augmentin 875MG] 1 tab PO BID #20 tablet 06/09/13 Fluticasone Propionate [Flonase] 2 sprays NS DAILY #1 spray.susp 06/09/13 Loratadine [Claritin] 10 mg PO DAILY #30 tablet 06/09/13 Prednisone 40 mg PO QDAY #10 tablet 06/09/13 Promethazine /Codeine [Phenergan/Codeine 6.25-10 mg/5 ml] 5 ml PO Q6H PRN #120 udc 06/09/13 Ibuprofen [Motrin 800 MG tab] 800 mg PO Q8HR PRN #60 tablet 02/24/15 Losartan/Hydrochlorothiazide [Hyzaar 100-12.5 TAB] 1 each PO QDAY 04/22/15 HYDROcodone/APAP 10-325 [Pella 10/325] 1 each PO Q8HR PRN #30 tablet 04/23/15 Methocarbamol [Robaxin TAB] 750 mg PO Q8H PRN #21 tablet 04/23/15 Methocarbamol [Robaxin TAB] 1,500 mg PO TID PRN #30 tab 06/27/15 diazePAM TAB [Valium] 2 mg PO TID PRN #12 tablet 06/27/15 metroNIDAZOLE [Flagyl TAB] 500 mg PO Q12HR #14 tab 07/15/15 traMADol [Ultram 50 MG tab] 50 mg PO Q6HR PRN #20 tablet 04/11/16 ALBUTEROL Inhaler (OR & NICU) [ProAir HFA Inhaler] 2 puff IH QID PRN #1 inhalation 06/14/17 Azithromycin [Zithromax Z-SHU] 250 mg PO QDAY #6 tablet 06/14/17 Codeine Phosphate/Guaifenesin [Guaifen-Codeine 100-10 mg/5 ml] 5 ml PO QDAY # 120 liquid 06/14/17 Prednisone [predniSONE 10 mg (6-Day Pack, 21 Tabs)] 10 mg PO .TAPER #1 tab.ds.pk 06/14/17 Acetaminophen/Codeine [Tylenol /Codeine # 3 tab] 1 tab PO Q6H PRN #14 tab Amoxicillin/K Clav Tab [Augmentin 875 mg] 1 tab PO Q12HR #20 tab 12/18/17 Chlorhexidine Mouthwash [Peridex] 15 ml MM BID #1 bottle 12/18/17 Acetaminophen [Acetaminophen ER] 650 mg PO Q8H PRN #15 tablet.er 03/19/18 Amoxicillin/K Clav Tab [Augmentin 875MG TAB] 1 tab PO Q12HR #20 tab 03/19/18 Cetirizine HCl [ZyrTEC] 10 mg PO QAM 14 Days #14 capsule 03/19/18 Fluticasone [Flonase] 1 spray NS QDAY 14 Days #1 bottle 03/19/18 Losartan/Hydrochlorothiazide [Hyzaar 100-25 TAB] 1 tab PO QDAY 30 Days #30 tab 03/19/18 ED Review of Systems ROS: Stated complaint: SOB/SORE THROAT/EARS BURNING Other details as noted in HPI Constitutional: denies: chills, fever Eyes: vision change (blurred vision). denies: eye pain, eye discharge ENT: denies: ear pain, throat pain Respiratory: cough, other (cough). denies: shortness of breath, SOB with exertion, SOB at rest, stridor, wheezing Cardiovascular: denies: chest pain, palpitations, edema, syncope Gastrointestinal: denies: abdominal pain, nausea, vomiting Genitourinary: denies: urgency, dysuria, discharge Musculoskeletal: denies: back pain, joint swelling, arthralgia, myalgia Skin: denies: rash, lesions Neurological: headache. denies: weakness, numbness, paresthesias, confusion, abnormal gait, vertigo Psychiatric: anxiety. denies: depression Hematological/Lymphatic: denies: easy bleeding, easy bruising ED Past Medical Hx - Past Medical History Previous Medical History?: Yes Hx Hypertension: Yes Hx Diabetes: Yes Hx GERD: Yes Hx Kidney Stones: Yes (stent placed 07-25-2013) Hx Psychiatric Treatment: Yes (anxiety) Additional medical history: ovarian cyst - Surgical History Past Surgical History?: Yes Additional Surgical History: Lithotripsy, renal stent, Endometrial Oblation. Tubal ligation - Family History Family history: hypertension - Social History Smoking Status: Never Smoker Substance Use Type: None - Medications Home Medications: Home Medications Medication Instructions Recorded Confirmed Last Taken Type Amoxicillin [Trimox CAP] 500 mg PO TID 06/09/13 06/09/13 06/08/13 20:00 History Amoxicillin/K Clav Tab [Augmentin 1 tab PO BID #20 tablet 06/09/13 Unknown Rx 875MG] Fluticasone Propionate [Flonase] 2 sprays NS DAILY #1 spray.susp 06/09/13 Unknown Rx Loratadine [Claritin] 10 mg PO DAILY #30 tablet 06/09/13 Unknown Rx Prednisone 40 mg PO QDAY #10 tablet 06/09/13 Unknown Rx Promethazine /Codeine 5 ml PO Q6H PRN #120 udc 06/09/13 Unknown Rx [Phenergan/Codeine 6.25-10 mg/5 ml] Ibuprofen [Motrin 800 MG tab] 800 mg PO Q8HR PRN #60 tablet 02/24/15 Unknown Rx Losartan/Hydrochlorothiazide 1 each PO QDAY 04/22/15 04/22/15 04/22/15 History [Hyzaar 100-12.5 TAB] HYDROcodone/APAP 10-325 [Pella 1 each PO Q8HR PRN #30 tablet 04/23/15 Unknown Rx 10/325] Methocarbamol [Robaxin TAB] 750 mg PO Q8H PRN #21 tablet 04/23/15 Unknown Rx Methocarbamol [Robaxin TAB] 1,500 mg PO TID PRN #30 tab 06/27/15 Unknown Rx diazePAM TAB [Valium] 2 mg PO TID PRN #12 tablet 06/27/15 Unknown Rx metroNIDAZOLE [Flagyl TAB] 500 mg PO Q12HR #14 tab 07/15/15 Unknown Rx traMADol [Ultram 50 MG tab] 50 mg PO Q6HR PRN #20 tablet 04/11/16 Unknown Rx ALBUTEROL Inhaler (OR & NICU) 2 puff IH QID PRN #1 inhalation 06/14/17 Unknown Rx [ProAir HFA Inhaler] Azithromycin [Zithromax Z-SHU] 250 mg PO QDAY #6 tablet 06/14/17 Unknown Rx Codeine Phosphate/Guaifenesin 5 ml PO QDAY #120 liquid 06/14/17 Unknown Rx [Guaifen-Codeine 100-10 mg/5 ml] Prednisone [predniSONE 10 mg 10 mg PO .TAPER #1 tab.ds.pk 06/14/17 Unknown Rx (6-Day Pack, 21 Tabs)] Acetaminophen/Codeine [Tylenol 1 tab PO Q6H PRN #14 tab 12/18/17 Unknown Rx /Codeine # 3 tab] Amoxicillin/K Clav Tab [Augmentin 1 tab PO Q12HR #20 tab 12/18/17 Unknown Rx 875 mg] Chlorhexidine Mouthwash [Peridex] 15 ml MM BID #1 bottle 12/18/17 Unknown Rx Acetaminophen [Acetaminophen ER] 650 mg PO Q8H PRN #15 tablet.er 03/19/18 Unknown Rx Amoxicillin/K Clav Tab [Augmentin 1 tab PO Q12HR #20 tab 03/19/18 Unknown Rx 875MG TAB] Cetirizine HCl [ZyrTEC] 10 mg PO QAM 14 Days #14 capsule 03/19/18 Unknown Rx Fluticasone [Flonase] 1 spray NS QDAY 14 Days #1 bottle 03/19/18 Unknown Rx Losartan/Hydrochlorothiazide 1 tab PO QDAY 30 Days #30 tab 03/19/18 Unknown Rx [Hyzaar 100-25 TAB] ED Physical Exam - General Limitations: No Limitations General appearance: alert, in no apparent distress - Head Head exam: Present: atraumatic, normocephalic, normal inspection - Eye Eye exam: Present: normal appearance, PERRL, EOMI. Absent: nystagmus, periorbital swelling, periorbital tenderness Pupils: Present: normal accommodation - ENT ENT exam: Present: normal exam, normal orophraynx, mucous membranes moist, TM's normal bilaterally, normal external ear exam, other (maxillary and frontal sinus is nontender to palpate) - Neck Neck exam: Present: normal inspection, full ROM, other. Absent: tenderness, meningismus, lymphadenopathy - Respiratory Respiratory exam: Present: normal lung sounds bilaterally, other (dry cough). Absent: respiratory distress, wheezes, rales, rhonchi, stridor, chest wall tenderness, accessory muscle use, decreased breath sounds, prolonged expiratory - Cardiovascular Cardiovascular Exam: Present: regular rate, normal rhythm, normal heart sounds. Absent: systolic murmur, diastolic murmur - GI/Abdominal GI/Abdominal exam: Present: soft, normal bowel sounds. Absent: distended, tenderness, guarding, rebound, rigid, organomegaly, mass, bruit - Extremities Exam Extremities exam: Present: normal inspection, full ROM, normal capillary refill , other (No cce. + 2 pulses in all extremities, no neurovascular compromise). Absent: tenderness, pedal edema, joint swelling, calf tenderness - Back Exam Back exam: Present: normal inspection, full ROM. Absent: tenderness - Neurological Exam Neurological exam: Present: alert, oriented X3, normal gait, reflexes normal. Absent: motor sensory deficit - Expanded Neurological Exam Expanded Neurological exam: Absent: innattentive, memory loss-remote event, memory loss- recent event, ataxia, receptive aphasia, expressive aphasia, total aphasia, tremor, protecting the airway Patient oriented to: Present: person, place, time Speech: Present: fluid speech Cranial nerves: EOM's Intact: Normal, Gag Reflex: Normal, Tongue Deviation: Normal, Nystagmus: Normal, Facial Sensation: Normal Cerebellar function: Romberg: Normal Upper motor neuron: Pronator Drift: Normal, Sensory Extinction: Normal Sensory exam: Upper Extremity Light Touch: Normal, Upper Extremity Temperature: Normal, UE 2 Point Discrimination: Normal, Lower Extremity Light Touch: Normal, Lower Extremity Temperature: Normal, LE 2 Point Discrimination: Normal Motor strength exam: RUE: 5, LUE: 5, RLE: 5, LLE: 5 Best Eye Response (Coolin): (4) open spontaneously Best Motor Response (Haley): (6) obeys commands Best Verbal Response (Haley): (5) oriented Haley Total: 15 - Psychiatric Psychiatric exam: Present: normal affect, normal mood - Skin Skin exam: Present: warm, dry, intact, normal color. Absent: rash ED Course Vital Signs 03/19/18 03/19/18 15:59 17:42 Temperature 98.8 F Pulse Rate 87 Respiratory 18 Rate Blood Pressure 189/113 127/75 O2 Sat by Pulse 98 Oximetry - Reevaluation(s) Reevaluation #1: 03/19/18 16:52 Patient received clonidine 0.2 mg by mouth for elevated blood pressure. She received Tylenol 975 mg by mouth for headache she reports is down to 6/10. We will recheck blood pressure shortly. CT scan without any acute findings. Reevaluation #2: 03/19/18 17:14 Patient to receive Decadron 10 mg IM Toradol 60 mg IM. This will help with sinusitis and headache ED Medical Decision Making - Radiology Data Radiology results: report reviewed CT scan of the head and brain without contrast dictated by radiologist and report reviewed by myself. See details below. Patient: RENNY PALMER MR#: [id number] : 1975 Acct:[id number] Age/Sex: 42 / F ADM Date: 03/19/18 Loc: ED Attending Dr: Ordering Physician: DANIEL ESPAÑA Date of Service: 03/19/18 Procedure(s): CT head/brain wo con Accession Number(s): [id number] cc: DANIEL ESPAÑA FINAL REPORT EXAM: CT HEAD/BRAIN WO CON HISTORY: headache, blurred vision, increase bp COMPARISON: None. TECHNIQUE: Multiple contiguous axial images were obtained from the skullbase to the vertex without administration of IV contrast. FINDINGS: Brain volume is normal for age. No hemorrhage, mass, mass effect, or midline shift. Ventricles are not enlarged. Normal basal cisterns. No pathologic extra-axial fluid collection. No evidence of acute infarct. No skull fracture. Paranasal sinuses and mastoid air cells are clear. Bilateral orbits are grossly intact. IMPRESSION: No acute intracranial abnormality. Transcribed By: YOLANDA Dictated By: CARINE RAI MD Electronically Authenticated By: CARINE RAI MD Signed Date/Time: 03/19/181656 DD/ 56 TD/TT: 03/19/181656 - Medical Decision Making This 42 year female here reports that she is having headache, blurred vision and elevated blood pressure on and off over the last 2 weeks. She has a history of high blood pressure and she is on medication but reports that her primary care doctor was supposed increase her medication but she did not call to increased medication. She is also complaining of upper respiratory symptoms. Patient will mild anxiety about her help. Diagnostics: CAT scan of the brain/head without contrast shows no acute findings. Assessment/plan 1: Upper respiratory infection with cough and congestion 2: Hypertension-blood pressure is 189/113. Plan to increase her current blood pressure medication. Pressure is better after clonidine. 3: Cough-stable 4:anxiety about health-better 5: Acute headache suspect from hypertension-CT scan negative for any acute findings. Headache is better after medication. Patient given clonidine 0.2 mg by mouth and emergency room hypertension She was given Deltasone 60 mg by mouth to cover upper respiratory and headache. Tylenol 975 mg by mouth for headache followed by Toradol 60 mg IM for headache. Patient's given information on CT scan results, diagnosis, treatment plan and agreed to follow up with her primary care physician to manage chronic hypertension. I discussed with her through further discharge instruction plan on low-sodium diet and weight loss. I encouraged her to take her blood pressure daily and keep a log and schedule an appointment to follow up with her primary care physician in 3 days for evaluation. Patient discharged home in stable condition with prescription for Zyrtec, Flonase, Augmentin and her blood pressure medication was increased. She is on losartan/HCTZ 10696 milligrams daily. I increase the water pill. Patient is in agreement with plan and she now she will need to call her primary care physician tomorrow to schedule an appointment for evaluation of her blood pressure and management. - Differential Diagnosis intracranialvs extracranial abnormality, sinusitis, URI with cough and maria isabel Critical care attestation.: If time is entered above; I have spent that time in minutes in the direct care of this critically ill patient, excluding procedure time. ED Disposition Clinical Impression: Anxiety about health, URI with cough and congestion, Anxiety Headache Qualifiers: Headache type: unspecified Headache chronicity pattern: acute headache Intractability: not intractable Qualified Code(s): R51 - Headache Hypertension Qualifiers: Hypertension type: unspecified Qualified Code(s): I10 - Essential (primary) hypertension Pharyngitis Qualifiers: Pharyngitis/tonsillitis etiology: unspecified etiology Qualified Code(s): J02.9 - Acute pharyngitis, unspecified Disposition: DC-01 TO HOME OR SELFCARE Is pt being admited?: No Does the pt Need Aspirin: No Condition: Stable Instructions: Pharyngitis (ED), Upper Respiratory Infection (ED), Acute Headache (ED), Hypertension (ED), Acute Cough (ED) Additional Instructions: Follow discharge instruction on low sodium diet Take Zyrtec and Flonase for congestion Take antibiotic as prescribed Take Tylenol for pain. See increase in her blood pressure medication. Keep a log Blood pressure and takes primary care physician within 3 days Symptoms worsens to include nausea, vomiting, headache, chest pain, shortness of breath, back or abdominal pain please return to emergency room if AP Prescriptions: Acetaminophen [Acetaminophen ER] 650 mg PO Q8H PRN #15 tablet.er PRN Reason: for left hand pain Amoxicillin/K Clav Tab [Augmentin 875MG TAB] 1 tab PO Q12HR #20 tab Cetirizine HCl [ZyrTEC] 10 mg PO QAM 14 Days #14 capsule Fluticasone [Flonase] 1 spray NS QDAY 14 Days #1 bottle Losartan/Hydrochlorothiazide [Hyzaar 100-25 TAB] 1 tab PO QDAY 30 Days #30 tab Referrals: PRIMARY CAREMD [Primary Care Provider] - 03/22/18 Forms: Work/School Release Form(ED)
[2018-03-19] MEDS ORDERED: TYLENOL PO ONE (16:25)
[2018-03-19] MEDS ORDERED: CATAPRES PO ONE (16:25)
--- NOTE | 2018-03-19 16:58 | Cat Scan Report ---
FINAL REPORT EXAM: CT HEAD/BRAIN WO CON HISTORY: headache, blurred vision, increase bp COMPARISON: None. TECHNIQUE: Multiple contiguous axial images were obtained from the skullbase to the vertex without administration of IV contrast. FINDINGS: Brain volume is normal for age. No hemorrhage, mass, mass effect, or midline shift. Ventricles are not enlarged. Normal basal cisterns. No pathologic extra-axial fluid collection. No evidence of acute infarct. No skull fracture. Paranasal sinuses and mastoid air cells are clear. Bilateral orbits are grossly intact. IMPRESSION: No acute intracranial abnormality.
[2018-03-19 17:47] VITALS: BP 127/75
== END 2018-03-19 18:02 | disposition home or self-care (01) ==
LOC: ED 15:56
DX: J02.9 Acute pharyngitis, unspecified (principal); I10 Essential (primary) hypertension; R11.2 Nausea with vomiting, unspecified; E11.9 Type 2 diabetes mellitus without complications; K21.9 Gastro-esophageal reflux disease without esophagitis; Z88.5 Allergy status to narcotic agent; Z87.442 Personal history of urinary calculi; Z98.51 Tubal ligation status
CPT/HCPCS: 70450; 99283

== ENCOUNTER 2018-09-18 17:31 | Emergency (ER) | payer MEDICAID ==
--- NOTE | 2018-09-18 18:32 | Emergency Department Report ---
Blank Doc - Documentation Documentation: This is a 42-year-old female that presents with URI with sore throat. This initial assessment/diagnostic orders/clinical plan/treatment(s) is/are subject to change based on patient's health status, clinical progression and re- assessment by fellow clinical providers in the ED. Further treatment and workup at subsequent clinical providers discretion. Patient/guardians urged not to elope from the ED as their condition may be serious if not clinically assessed and managed. Initial orders include: 1- Patient sent to [facility] for further evaluation and treatment 2- CXR 3- strep swab
--- NOTE | 2018-09-18 21:14 | XRay Report ---
PROCEDURE: XR CHEST ROUTINE 2V TECHNIQUE: PA and lateral chest radiographs were obtained. HISTORY: cough COMPARISONS: None. FINDINGS: Heart: Normal. Mediastinum/Vessels: The right hilum is prominent suggesting adenopathy.. Lungs/Pleural space: The lungs are well expanded. There are right perihilar opacities which could be infiltrates.. Bony thorax: No acute osseous abnormality. IMPRESSION: The heart size is normal. The right hilum is prominent suggesting adenopathy.. The lungs are well expanded. There are right perihilar opacities which could be infiltrates.. This document is electronically signed by Rashaun Georges MD., September 18 2018 09:12:04 PM ET
--- NOTE | 2018-09-18 22:05 | Emergency Department Report ---
ED General Adult HPI - General Chief complaint: Sore Throat Stated complaint: HEADACHE/SORE THROAT/COUGH Time Seen by Provider: 09/18/18 18:32 Source: family Mode of arrival: Ambulatory Limitations: No Limitations - History of Present Illness Initial comments: Em for past week ergency physician showed throat cough wheezing for past week cough of past month not improved tx'd by pcp without improvement symptoms include cough wheezing fever nausea pt is ambulatory there is no cp no dizziness no lightheadededness , symptoms are exacerbated by environmental exposure symptoms are improved with albuterol inhaler, sore throart worsening over past week Onset/Timin -: week(s), month(s) Location: head, chest Radiation: non-radiation Severity scale (0 -10): 6 Quality: aching, sharp Consistency: constant Improves with: other (albuterol inhaler) Worsens with: other (environmental exposure ) Associated Symptoms: cough, fever/chills, headaches, shortness of breath Treatments Prior to Arrival: none - Related Data Home Medications Medication Instructions Recorded Confirmed Last Taken Amoxicillin [Trimox CAP] 500 mg PO TID 06/09/13 06/09/13 06/08/13 20:00 Losartan/Hydrochlorothiazide 1 each PO QDAY 04/22/15 04/22/15 04/22/15 [Hyzaar 100-12.5 TAB] Previous Rx's Medication Instructions Recorded Last Taken Type Amoxicillin/K Clav Tab [Augmentin 1 tab PO BID #20 tablet 06/09/13 Unknown Rx 875MG] Fluticasone Propionate [Flonase] 2 sprays NS DAILY #1 spray.susp 06/09/13 Unknown Rx Prednisone 40 mg PO QDAY #10 tablet 06/09/13 Unknown Rx Promethazine /Codeine 5 ml PO Q6H PRN #120 udc 06/09/13 Unknown Rx [Phenergan/Codeine 6.25-10 mg/5 ml] Ibuprofen [Motrin 800 MG tab] 800 mg PO Q8HR PRN #60 tablet 02/24/15 Unknown Rx HYDROcodone/APAP 10-325 [[place] 1 each PO Q8HR PRN #30 tablet 04/23/15 Unknown Rx 10/325] Methocarbamol [Robaxin TAB] 750 mg PO Q8H PRN #21 tablet 04/23/15 Unknown Rx Methocarbamol [Robaxin TAB] 1,500 mg PO TID PRN #30 tab 06/27/15 Unknown Rx diazePAM TAB [Valium] 2 mg PO TID PRN #12 tablet 06/27/15 Unknown Rx metroNIDAZOLE [Flagyl TAB] 500 mg PO Q12HR #14 tab 07/15/15 Unknown Rx traMADol [Ultram 50 MG tab] 50 mg PO Q6HR PRN #20 tablet 04/11/16 Unknown Rx ALBUTEROL Inhaler (OR & NICU) 2 puff IH QID PRN #1 inhalation 06/14/17 Unknown Rx [ProAir HFA Inhaler] Azithromycin [Zithromax Z-VU] 250 mg PO QDAY #6 tablet 06/14/17 Unknown Rx Prednisone [predniSONE 10 mg 10 mg PO .TAPER #1 tab.ds.pk 06/14/17 Unknown Rx (6-Day Pack, 21 Tabs)] Acetaminophen/Codeine [Tylenol 1 tab PO Q6H PRN #14 tab 12/18/17 Unknown Rx /Codeine # 3 tab] Amoxicillin/K Clav Tab [Augmentin 1 tab PO Q12HR #20 tab 12/18/17 Unknown Rx 875 mg] Chlorhexidine Mouthwash [Peridex] 15 ml MM BID #1 bottle 12/18/17 Unknown Rx Acetaminophen [Acetaminophen ER] 650 mg PO Q8H PRN #15 tablet.er 03/19/18 Unknown Rx Amoxicillin/K Clav Tab [Augmentin 1 tab PO Q12HR #20 tab 03/19/18 Unknown Rx 875MG TAB] Cetirizine HCl [ZyrTEC] 10 mg PO QAM 14 Days #14 capsule 03/19/18 Unknown Rx Fluticasone [Flonase] 1 spray NS QDAY 14 Days #1 bottle 03/19/18 Unknown Rx Losartan/Hydrochlorothiazide 1 tab PO QDAY 30 Days #30 tab 03/19/18 Unknown Rx [Hyzaar 100-25 TAB] Methocarbamol [Robaxin-750] 750 mg PO Q8HR #20 tablet 05/10/18 Unknown Rx predniSONE [Prednisone] 50 mg PO DAILY #7 tablet 05/10/18 Unknown Rx Cyclobenzaprine HCl [Flexeril 5 MG 5 mg PO TID PRN #21 tab 05/25/18 Unknown Rx TAB] Codeine Phosphate/Guaifenesin 10 ml PO TID #80 liquid 06/25/18 Unknown Rx [Guaifen-Codeine 100-10 mg/5 ml] Loratadine [Claritin] 10 mg PO DAILY #30 tablet 06/25/18 Unknown Rx ALBUTEROL Inhaler(NF) [VENTOLIN 2 puff IH Q4H PRN #1 inha 09/18/18 Unknown Rx Inhaler(NF)] Acetaminophen [Tylenol Extra 1,000 mg PO QID PRN #30 tablet 09/18/18 Unknown Rx Strength] Azithromycin [Zithromax Z-VU] 250 mg PO DAILY #6 tab 09/18/18 Unknown Rx Benzonatate [Tessalon Perles] 100 mg PO Q8HR PRN #30 capsule 09/18/18 Unknown Rx Allergies Allergy/AdvReac Type Severity Reaction Status Date / Time ibuprofen Allergy Bleeding Verified 05/10/18 07:33 tramadol HCl [From Ultram] Allergy Vomiting Verified 05/10/18 07:33 ED Review of Systems ROS: Stated complaint: HEADACHE/SORE THROAT/COUGH Other details as noted in HPI Constitutional: denies: chills, fever Eyes: denies: eye pain, eye discharge, vision change ENT: ear pain, throat pain, congestion Respiratory: cough, shortness of breath, wheezing Cardiovascular: denies: chest pain, palpitations Endocrine: no symptoms reported Gastrointestinal: nausea. denies: abdominal pain, vomiting, diarrhea, constipation, hematemesis, melena Genitourinary: urgency Musculoskeletal: denies: back pain, joint swelling, arthralgia Skin: denies: rash, lesions Neurological: headache. denies: weakness, paresthesias Psychiatric: denies: anxiety, depression Hematological/Lymphatic: denies: easy bleeding, easy bruising ED Past Medical Hx - Past Medical History Previous Medical History?: Yes Hx Hypertension: Yes Hx Diabetes: Yes Hx GERD: Yes Hx Kidney Stones: Yes (stent placed 07-25-2013) Hx Psychiatric Treatment: Yes (anxiety) Additional medical history: ovarian cyst - Surgical History Past Surgical History?: Yes Additional Surgical History: Lithotripsy, renal stent, Endometrial Oblation. Tubal ligation - Social History Smoking Status: Never Smoker Substance Use Type: None - Medications Home Medications: Home Medications Medication Instructions Recorded Confirmed Last Taken Type Amoxicillin [Trimox CAP] 500 mg PO TID 12/07/13 12/07/13 12/06/13 20:00 History Amoxicillin/K Clav Tab [Augmentin 1 tab PO BID #20 tablet 06/09/13 Unknown Rx 875MG] Fluticasone Propionate [Flonase] 2 sprays NS DAILY #1 spray.susp 06/09/13 Unknown Rx Prednisone 40 mg PO QDAY #10 tablet 06/09/13 Unknown Rx Promethazine /Codeine 5 ml PO Q6H PRN #120 udc 06/09/13 Unknown Rx [Phenergan/Codeine 6.25-10 mg/5 ml] Ibuprofen [Motrin 800 MG tab] 800 mg PO Q8HR PRN #60 tablet 02/24/15 Unknown Rx Losartan/Hydrochlorothiazide 1 each PO QDAY 04/22/15 04/22/15 04/22/15 History [Hyzaar 100-12.5 TAB] HYDROcodone/APAP 10-325 [[place] 1 each PO Q8HR PRN #30 tablet 04/23/15 Unknown Rx 10/325] Methocarbamol [Robaxin TAB] 750 mg PO Q8H PRN #21 tablet 04/23/15 Unknown Rx Methocarbamol [Robaxin TAB] 1,500 mg PO TID PRN #30 tab 06/27/15 Unknown Rx diazePAM TAB [Valium] 2 mg PO TID PRN #12 tablet 06/27/15 Unknown Rx metroNIDAZOLE [Flagyl TAB] 500 mg PO Q12HR #14 tab 07/15/15 Unknown Rx traMADol [Ultram 50 MG tab] 50 mg PO Q6HR PRN #20 tablet 04/11/16 Unknown Rx ALBUTEROL Inhaler (OR & NICU) 2 puff IH QID PRN #1 inhalation 06/14/17 Unknown Rx [ProAir HFA Inhaler] Azithromycin [Zithromax Z-VU] 250 mg PO QDAY #6 tablet 06/14/17 Unknown Rx Prednisone [predniSONE 10 mg 10 mg PO .TAPER #1 tab.ds.pk 06/14/17 Unknown Rx (6-Day Pack, 21 Tabs)] Acetaminophen/Codeine [Tylenol 1 tab PO Q6H PRN #14 tab 12/18/17 Unknown Rx /Codeine # 3 tab] Amoxicillin/K Clav Tab [Augmentin 1 tab PO Q12HR #20 tab 12/18/17 Unknown Rx 875 mg] Chlorhexidine Mouthwash [Peridex] 15 ml MM BID #1 bottle 06/17/18 Unknown Rx Acetaminophen [Acetaminophen ER] 650 mg PO Q8H PRN #15 tablet.er 03/19/18 Unknown Rx Amoxicillin/K Clav Tab [Augmentin 1 tab PO Q12HR #20 tab 03/19/18 Unknown Rx 875MG TAB] Cetirizine HCl [ZyrTEC] 10 mg PO QAM 14 Days #14 capsule 03/19/18 Unknown Rx Fluticasone [Flonase] 1 spray NS QDAY 14 Days #1 bottle 03/19/18 Unknown Rx Losartan/Hydrochlorothiazide 1 tab PO QDAY 30 Days #30 tab 03/19/18 Unknown Rx [Hyzaar 100-25 TAB] Methocarbamol [Robaxin-750] 750 mg PO Q8HR #20 tablet 05/10/18 Unknown Rx predniSONE [Prednisone] 50 mg PO DAILY #7 tablet 05/10/18 Unknown Rx Cyclobenzaprine HCl [Flexeril 5 MG 5 mg PO TID PRN #21 tab 05/25/18 Unknown Rx TAB] Codeine Phosphate/Guaifenesin 10 ml PO TID #80 liquid 06/25/18 Unknown Rx [Guaifen-Codeine 100-10 mg/5 ml] Loratadine [Claritin] 10 mg PO DAILY #30 tablet 06/25/18 Unknown Rx ALBUTEROL Inhaler(NF) [VENTOLIN 2 puff IH Q4H PRN #1 inha 09/18/18 Unknown Rx Inhaler(NF)] Acetaminophen [Tylenol Extra 1,000 mg PO QID PRN #30 tablet 09/18/18 Unknown Rx Strength] Azithromycin [Zithromax Z-VU] 250 mg PO DAILY #6 tab 09/18/18 Unknown Rx Benzonatate [Tessalon Perles] 100 mg PO Q8HR PRN #30 capsule 09/18/18 Unknown Rx ED Physical Exam - General Limitations: No Limitations General appearance: alert, in no apparent distress - Head Head exam: Present: atraumatic, normocephalic - Eye Eye exam: Present: normal appearance, PERRL, EOMI Pupils: Present: normal accommodation - ENT ENT exam: Present: mucous membranes moist - Expanded ENT Exam Expanded Ear exam: Present: normal external inspection TM/Canal exam: Erythema: Right TM, Left TM Throat exam: Positive: tonsillar erythema, tonsillomegaly, other (uvula midline no exudate no lesions no stridor ). Negative: tonsillar exudate, R peritonsillar mass, L peritonsillar mass - Neck Neck exam: Present: normal inspection, full ROM, lymphadenopathy. Absent: tenderness, meningismus, thyromegaly - Expanded Neck Exam Expanded Neck exam: Absent: tenderness, midline deformity, anterior neck swelling, thyroid mass, carotid bruit, tracheal deviation - Respiratory Respiratory exam: Present: normal lung sounds bilaterally, wheezes, chest wall tenderness (right lateral chest wall pain ). Absent: respiratory distress, rales, rhonchi, stridor, accessory muscle use, decreased breath sounds, prolonged expiratory (all the cholesterol is) - Cardiovascular Cardiovascular Exam: Present: regular rate ( likely), normal rhythm, normal heart sounds. Absent: systolic murmur, diastolic murmur, rubs, gallop - GI/Abdominal GI/Abdominal exam: Present: soft, normal bowel sounds. Absent: tenderness, guarding, rebound, rigid, bruit, hernia - Rectal Rectal exam: Present: deferred - Extremities Exam Extremities exam: Present: normal inspection, full ROM, normal capillary refill. Absent: tenderness, pedal edema, joint swelling, calf tenderness - Back Exam Back exam: Present: normal inspection, full ROM, CVA tenderness (R). Absent: tenderness, CVA tenderness (L), muscle spasm, paraspinal tenderness, vertebral tenderness, rash noted - Neurological Exam Neurological exam: Present: alert, oriented X3, CN II-XII intact, normal gait, reflexes normal - Psychiatric Psychiatric exam: Present: normal affect, normal mood - Skin Skin exam: Present: warm, dry, intact, normal color. Absent: rash ED Course Vital Signs 09/18/18 18:32 Temperature 98.6 F Pulse Rate 98 H Respiratory 20 Rate Blood Pressure 160/94 O2 Sat by Pulse 97 Oximetry ED Medical Decision Making - Radiology Data Radiology results: report reviewed, image reviewed Ordering Physician: SOLIS AGOSTO NP Date of Service: 09/18/18 Procedure(s): XR chest routine 2V Accession Number(s): [id number] cc: SOLIS AGOSTO NP Fluoro Time In Minutes: PROCEDURE: XR CHEST ROUTINE 2V TECHNIQUE: PA and lateral chest radiographs were obtained. HISTORY: cough COMPARISONS: None. FINDINGS: Heart: Normal. Mediastinum/Vessels: The right hilum is prominent suggesting adenopathy.. Lungs/Pleural space: The lungs are well expanded. There are right perihilar opacities which could be infiltrates.. Bony thorax: No acute osseous abnormality. IMPRESSION: The heart size is normal. The right hilum is prominent suggesting adenopathy.. The lungs are well expanded. There are right perihilar opacities which could be infiltrates.. This document is electronically signed by Rashaun Ibarra MD., September 18 2018 09:12:04 PM ET Transcribed By: CO Dictated By: RASHAUN IBARRA MD Electronically Authenticated By: RASHAUN IBARRA MD Signed Date/Time: 09/18/182113 DD/ 28 TD/TT: 09/18/181928 - Medical Decision Making This is likely meningitis with likely CAP patient Rocephin 1 g IM in ED was DC'd to home with albuterol inhaler and Z-Vu five-day Tylenol when necessary Tessalon Perles patient has follow-up appointment with PCP Dr. Guadalupe in the morning patient will keep same appointment patient will return to ED to symptoms worsen patient verbalized agreement and understanding of the discharge plan patient will be DC'd to home in stable condition at this time. Critical care attestation.: If time is entered above; I have spent that time in minutes in the direct care of this critically ill patient, excluding procedure time. ED Disposition Clinical Impression: Bronchitis CAP (community acquired pneumonia) Qualifiers: Laterality: right Lung location: upper lobe of lung Qualified Code(s): J18.1 - Lobar pneumonia, unspecified organism Upper respiratory infection Qualifiers: URI type: unspecified viral URI Qualified Code(s): J06.9 - Acute upper respiratory infection, unspecified Disposition: DC-01 TO HOME OR SELFCARE Is pt being admited?: No Does the pt Need Aspirin: No Condition: Stable Instructions: Chronic Bronchitis (ED), Community-acquired Pneumonia (ED), Upper Respiratory Infection (ED) Prescriptions: Benzonatate [Tessalon Perles] 100 mg PO Q8HR PRN #30 capsule PRN Reason: cough Acetaminophen [Tylenol Extra Strength] 1,000 mg PO QID PRN #30 tablet PRN Reason: pain fever ALBUTEROL Inhaler(NF) [VENTOLIN Inhaler(NF)] 2 puff IH Q4H PRN #1 inha PRN Reason: shortness of breath wheezing Azithromycin [Zithromax Z-VU] 250 mg PO DAILY #6 tab Referrals: STAR HAWKINS MD [Primary Care Provider] - 3-5 Days Forms: Work/School Release Form(ED) Time of Disposition: 22:20
[2018-09-18] MEDS ORDERED: PROVENTIL IH ONE (22:06)
[2018-09-18] MEDS ORDERED: XYLOCAINE 1% MPF 5 mL INFILTRATI ONE (22:06)
[2018-09-18] MEDS ORDERED: ROCEPHIN IM ONE (22:06)
[2018-09-18] MEDS ORDERED: TYLENOL #3 PO ONE (22:08)
[2018-09-18 22:58] VITALS: BP 152/78
== END 2018-09-18 22:35 | disposition home or self-care (01) ==
LOC: ED 17:31
DX: J40 Bronchitis, not specified as acute or chronic (principal); J18.1 Lobar pneumonia, unspecified organism; J06.9 Acute upper respiratory infection, unspecified; I10 Essential (primary) hypertension; K21.9 Gastro-esophageal reflux disease without esophagitis; E11.9 Type 2 diabetes mellitus without complications; Z88.5 Allergy status to narcotic agent; Z98.51 Tubal ligation status
CPT/HCPCS: 71046; 87116; 87430; 94640; 96372; 99284; J0696

== ENCOUNTER 2019-04-01 14:46 | Emergency (ER) | payer SELFPAY ==
[2019-04-01 14:54] VITALS: BP 184/112
--- NOTE | 2019-04-01 15:01 | Event Note ---
ED Screening Note Date of service: 04/01/19 Time: 14:56 ED Screening Note: This is a 43 y.o. F. that presents to the ER with right flank pain for 1 week. + urinary frequency, hematuria, urgency, and right flank PMH of DM2 and HTN Patient requesting refills of blood pressure medication. She ran out 4-5 months. This initial assessment/diagnostic orders/clinical plan/treatment(s) is/are subject to change based on patients health status, clinical progression and re- assessment by fellow clinical providers in the ED. Further treatment and workup at subsequent clinical providers discretion. Patient/guardian urged not to elope from the ED as their condition may be serious if not clinically assessed and managed. Initial orders include: Labs and CT of Abdominal pain and pelvis
[2019-04-01 15:47] LABS: Hematocrit 34.8 % (30.3-42.9); Hemoglobin 11.2 gm/dl (10.1-14.3); Mean Corpuscular HGB Conc 32 % (30-34); Mean Corpuscular Volume 81 fl (79-97); Platelet Count 334 K/mm3 (140-440); Red Blood Count 4.28 M/mm3 (3.65-5.03); Red Cell Distribution Width 14.3 % (13.2-15.2)
[2019-04-01 15:57] LABS: Bilirubin,Urine NEG (Negative); Blood,Urine NEG (Negative); Color,Urine Yellow (Yellow); Mucus,Urine FEW /HPF; Protein,Urine <15 mg/dL mg/dL (Negative); Urobilinogen,Urine < 2.0 mg/dL (<2.0)
[2019-04-01 15:59] LABS: Basophils # (Auto) 0.1 K/mm3 (0.0-0.1); Basophils % (Auto) 0.8 % (0.0-1.8); Eosinophils # (Auto) 0.1 K/mm3 (0.0-0.4); Eosinophils % (Auto) 1.8 % (0.0-4.3); Lymphocytes # (Auto) 2.8 K/mm3 (1.2-5.4); Lymphocytes % (Auto) 37.2 % (13.4-35.0); Monocytes # (Auto) 0.3 K/mm3 (0.0-0.8); Monocytes % (Auto) 4.3 % (0.0-7.3)
[2019-04-01 16:00] LABS: Alanine Aminotransferase 9 units/L (7-56); Albumin 4.2 g/dL (3.9-5); BUN/Creatinine Ratio 13; Blood Urea Nitrogen 9 mg/dL (7-17); Calcium 9.1 mg/dL (8.4-10.2); Hemolysis Index 3
[2019-04-01] MEDS ORDERED: ONDANSETRON 4 MG/2 ML INJ IV ONE (16:01)
[2019-04-01] MEDS ORDERED: SODIUM CHLORIDE 0.9% 1000 ML 1,000 ML IV ONE (16:01)
[2019-04-01] MEDS ORDERED: MORPHINE 4 MG/1 ML INJ IV ONE (16:01)
--- NOTE | 2019-04-01 16:38 | Cat Scan Report ---
CT OF THE ABDOMEN AND PELVIS WITHOUT CONTRAST INDICATION / CLINICAL INFORMATION: Right flank pain. TECHNIQUE: All CT scans at this location are performed using CT dose reduction for ALARA by means of automated e xposure control. COMPARISON: 04/11/2016. FINDINGS: ABDOMEN: There are a couple of very tiny renal calculi bilaterally measuring less than 1 mm. There is no evidence of ureteral calculus or hydronephrosis. There is a small simple cyst-appearing lesion in the lower pole of the right kidney. The liver, spleen, gallbladder, bile ducts, pancreas, adrenal glands and bowel are normal. No adenopa thy is seen. The lung bases are clear. PELVIS: The distal ureters and urinary bladder are normal. There is evidence of prior bilateral tubal ligation. There is a 2.9 cm simple left ovarian cyst without free fluid. A normal appendix is presen t and there is no evidence of diverticulitis. I do not identify a hernia. No acute osseous abnormalit y is identified. IMPRESSION: 1. Minimal bilateral nonobstructive nephrolithiasis. No evidence of ureteral calculus or hydronephros is. 2. 2.9 cm follicular cyst in the left ovary. Signer Name: Otoniel Arcos MD Signed: 04/01/2019 4:34 PM Workstation Name: [id number]
--- NOTE | 2019-04-01 18:01 | Emergency Department Report ---
ED Abdominal Pain HPI - General Chief Complaint: Abdominal Pain Stated Complaint: SIDE PAIN Time Seen by Provider: 04/01/19 14:56 Source: patient Mode of arrival: Ambulatory Limitations: No Limitations - History of Present Illness Initial Comments: This is a 43-year-old female nontoxic, well nourished in appearance, no acute signs of distress presents to the ED with c/o of nausea and vomiting and flank pain 1 week. Patient describes vomiting as food content and yellow gastric acid. Patient describes flank pain as cramping and aching with level of 8/10 diffuse. Patient denies chest pain, short of breath, fever, chills, headache, stiff neck, numbness or tingling. Patient denies any diarrhea or constipation. Patient denies any recent travels. Patient stated allergies to NSAIDs and tramadol. MD Complaint: abdominal pain -: week(s) (1) Location: R flank Radiation: none Migration to: no migration Severity: mild Quality: cramping, aching Consistency: constant Improves With: nothing Worsens With: nothing Associated Symptoms: nausea, vomiting. denies: diarrhea, fever, chills, constipation, dysuria, hematemesis, hematochezia, melena, hematuria, anorexia, syncope - Related Data Home Medications Medication Instructions Recorded Confirmed Last Taken Amoxicillin [Trimox CAP] 500 mg PO TID 06/09/13 06/09/13 06/08/13 20:00 Losartan/Hydrochlorothiazide 1 each PO QDAY 04/22/15 04/22/15 04/22/15 [Hyzaar 100-12.5 TAB] Previous Rx's Medication Instructions Recorded Last Taken Type Amoxicillin/K Clav Tab [Augmentin 1 tab PO BID #20 tablet 06/09/13 Unknown Rx 875MG] Fluticasone Propionate [Flonase] 2 sprays NS DAILY #1 spray.susp 06/09/13 Unknown Rx Prednisone 40 mg PO QDAY #10 tablet 06/09/13 Unknown Rx Promethazine /Codeine 5 ml PO Q6H PRN #120 udc 06/09/13 Unknown Rx [Phenergan/Codeine 6.25-10 mg/5 ml] Ibuprofen [Motrin 800 MG tab] 800 mg PO Q8HR PRN #60 tablet 02/24/15 Unknown Rx HYDROcodone/APAP 10-325 [[place] 1 each PO Q8HR PRN #30 tablet 04/23/15 Unknown Rx 10/325] methOCARBAMOL [Robaxin TAB] 750 mg PO Q8H PRN #21 tablet 04/23/15 Unknown Rx diazePAM TAB [Valium] 2 mg PO TID PRN #12 tablet 06/27/15 Unknown Rx methOCARBAMOL [Robaxin TAB] 1,500 mg PO TID PRN #30 tab 06/27/15 Unknown Rx metroNIDAZOLE [Flagyl TAB] 500 mg PO Q12HR #14 tab 07/15/15 Unknown Rx traMADol [Ultram 50 MG tab] 50 mg PO Q6HR PRN #20 tablet 04/11/16 Unknown Rx ALBUTEROL Inhaler (OR & NICU) 2 puff IH QID PRN #1 inhalation 06/14/17 Unknown Rx [ProAir HFA Inhaler] Azithromycin [Zithromax Z-SHU] 250 mg PO QDAY #6 tablet 06/14/17 Unknown Rx Prednisone [predniSONE 10 mg 10 mg PO .TAPER #1 tab.ds.pk 06/14/17 Unknown Rx (6-Day Pack, 21 Tabs)] Acetaminophen/Codeine [Tylenol 1 tab PO Q6H PRN #14 tab 12/18/17 Unknown Rx /Codeine # 3 tab] Amoxicillin/K Clav Tab [Augmentin 1 tab PO Q12HR #20 tab 12/18/17 Unknown Rx 875 mg] Chlorhexidine Mouthwash [Peridex] 15 ml MM BID #1 bottle 12/18/17 Unknown Rx Acetaminophen [Acetaminophen ER] 650 mg PO Q8H PRN #15 tablet.er 03/19/18 Unknown Rx Amoxicillin/K Clav Tab [Augmentin 1 tab PO Q12HR #20 tab 03/19/18 Unknown Rx 875MG TAB] Cetirizine HCl [ZyrTEC] 10 mg PO QAM 14 Days #14 capsule 03/19/18 Unknown Rx Fluticasone [Flonase] 1 spray NS QDAY 14 Days #1 bottle 03/19/18 Unknown Rx Losartan/Hydrochlorothiazide 1 tab PO QDAY 30 Days #30 tab 03/19/18 Unknown Rx [Hyzaar 100-25 TAB] Methocarbamol [Robaxin-750] 750 mg PO Q8HR #20 tablet 05/10/18 Unknown Rx predniSONE [Prednisone] 50 mg PO DAILY #7 tablet 05/10/18 Unknown Rx Cyclobenzaprine HCl [Flexeril 5 MG 5 mg PO TID PRN #21 tab 05/25/18 Unknown Rx TAB] Codeine Phosphate/Guaifenesin 10 ml PO TID #80 liquid 06/25/18 Unknown Rx [Guaifen-Codeine 100-10 mg/5 ml] Loratadine [Claritin] 10 mg PO DAILY #30 tablet 06/25/18 Unknown Rx ALBUTEROL Inhaler(NF) [VENTOLIN 2 puff IH Q4H PRN #1 inha 09/18/18 Unknown Rx Inhaler(NF)] Acetaminophen [Tylenol Extra 1,000 mg PO QID PRN #30 tablet 09/18/18 Unknown Rx Strength] Azithromycin [Zithromax Z-SHU] 250 mg PO DAILY #6 tab 09/18/18 Unknown Rx Benzonatate [Tessalon Perles] 100 mg PO Q8HR PRN #30 capsule 09/18/18 Unknown Rx Acetaminophen/Codeine [Tylenol 1 tab PO Q6H PRN #12 tab 04/01/19 Unknown Rx /Codeine # 3 tab] Ondansetron [Zofran Odt] 4 mg PO Q8HR PRN #20 tab.rapdis 04/01/19 Unknown Rx Allergies Allergy/AdvReac Type Severity Reaction Status Date / Time ibuprofen Allergy Bleeding Verified 05/10/18 07:33 tramadol HCl [From Ultram] Allergy Vomiting Verified 05/10/18 07:33 ED Review of Systems ROS: Stated complaint: SIDE PAIN Other details as noted in HPI Constitutional: denies: chills, fever Eyes: denies: eye pain, eye discharge, vision change ENT: denies: ear pain, throat pain Respiratory: denies: cough, shortness of breath, wheezing Cardiovascular: denies: chest pain, palpitations Endocrine: no symptoms reported Gastrointestinal: nausea, vomiting, other (flank pain). denies: abdominal pain, diarrhea Genitourinary: denies: urgency, dysuria, discharge Musculoskeletal: denies: back pain, joint swelling, arthralgia Skin: denies: rash, lesions Neurological: denies: headache, weakness, paresthesias Psychiatric: denies: anxiety, depression Hematological/Lymphatic: denies: easy bleeding, easy bruising ED Past Medical Hx - Past Medical History Previous Medical History?: Yes Hx Hypertension: Yes Hx Diabetes: Yes Hx GERD: Yes Hx Kidney Stones: Yes (stent placed 07-25-2013) Hx Psychiatric Treatment: Yes (anxiety) Additional medical history: ovarian cyst - Surgical History Past Surgical History?: Yes Additional Surgical History: Lithotripsy, renal stent, Endometrial Oblation. Tubal ligation - Social History Smoking Status: Never Smoker Substance Use Type: Prescribed - Medications Home Medications: Home Medications Medication Instructions Recorded Confirmed Last Taken Type Amoxicillin [Trimox CAP] 500 mg PO TID 06/09/13 06/09/13 06/08/13 20:00 History Amoxicillin/K Clav Tab [Augmentin 1 tab PO BID #20 tablet 06/09/13 Unknown Rx 875MG] Fluticasone Propionate [Flonase] 2 sprays NS DAILY #1 spray.susp 06/09/13 Unknown Rx Prednisone 40 mg PO QDAY #10 tablet 06/09/13 Unknown Rx Promethazine /Codeine 5 ml PO Q6H PRN #120 udc 06/09/13 Unknown Rx [Phenergan/Codeine 6.25-10 mg/5 ml] Ibuprofen [Motrin 800 MG tab] 800 mg PO Q8HR PRN #60 tablet 02/24/15 Unknown Rx Losartan/Hydrochlorothiazide 1 each PO QDAY 04/22/15 04/22/15 04/22/15 History [Hyzaar 100-12.5 TAB] HYDROcodone/APAP 10-325 [[place] 1 each PO Q8HR PRN #30 tablet 04/23/15 Unknown Rx 10/325] methOCARBAMOL [Robaxin TAB] 750 mg PO Q8H PRN #21 tablet 04/23/15 Unknown Rx diazePAM TAB [Valium] 2 mg PO TID PRN #12 tablet 06/27/15 Unknown Rx methOCARBAMOL [Robaxin TAB] 1,500 mg PO TID PRN #30 tab 06/27/15 Unknown Rx metroNIDAZOLE [Flagyl TAB] 500 mg PO Q12HR #14 tab 07/15/15 Unknown Rx traMADol [Ultram 50 MG tab] 50 mg PO Q6HR PRN #20 tablet 04/11/16 Unknown Rx ALBUTEROL Inhaler (OR & NICU) 2 puff IH QID PRN #1 inhalation 06/14/17 Unknown Rx [ProAir HFA Inhaler] Azithromycin [Zithromax Z-SHU] 250 mg PO QDAY #6 tablet 06/14/17 Unknown Rx Prednisone [predniSONE 10 mg 10 mg PO .TAPER #1 tab.ds.pk 06/14/17 Unknown Rx (6-Day Pack, 21 Tabs)] Acetaminophen/Codeine [Tylenol 1 tab PO Q6H PRN #14 tab 12/18/17 Unknown Rx /Codeine # 3 tab] Amoxicillin/K Clav Tab [Augmentin 1 tab PO Q12HR #20 tab 12/18/17 Unknown Rx 875 mg] Chlorhexidine Mouthwash [Peridex] 15 ml MM BID #1 bottle 12/18/17 Unknown Rx Acetaminophen [Acetaminophen ER] 650 mg PO Q8H PRN #15 tablet.er 03/19/18 Unknown Rx Amoxicillin/K Clav Tab [Augmentin 1 tab PO Q12HR #20 tab 03/19/18 Unknown Rx 875MG TAB] Cetirizine HCl [ZyrTEC] 10 mg PO QAM 14 Days #14 capsule 03/19/18 Unknown Rx Fluticasone [Flonase] 1 spray NS QDAY 14 Days #1 bottle 03/19/18 Unknown Rx Losartan/Hydrochlorothiazide 1 tab PO QDAY 30 Days #30 tab 03/19/18 Unknown Rx [Hyzaar 100-25 TAB] Methocarbamol [Robaxin-750] 750 mg PO Q8HR #20 tablet 05/10/18 Unknown Rx predniSONE [Prednisone] 50 mg PO DAILY #7 tablet 05/10/18 Unknown Rx Cyclobenzaprine HCl [Flexeril 5 MG 5 mg PO TID PRN #21 tab 05/25/18 Unknown Rx TAB] Codeine Phosphate/Guaifenesin 10 ml PO TID #80 liquid 06/25/18 Unknown Rx [Guaifen-Codeine 100-10 mg/5 ml] Loratadine [Claritin] 10 mg PO DAILY #30 tablet 06/25/18 Unknown Rx ALBUTEROL Inhaler(NF) [VENTOLIN 2 puff IH Q4H PRN #1 inha 09/18/18 Unknown Rx Inhaler(NF)] Acetaminophen [Tylenol Extra 1,000 mg PO QID PRN #30 tablet 09/18/18 Unknown Rx Strength] Azithromycin [Zithromax Z-SHU] 250 mg PO DAILY #6 tab 09/18/18 Unknown Rx Benzonatate [Tessalon Perles] 100 mg PO Q8HR PRN #30 capsule 09/18/18 Unknown Rx Acetaminophen/Codeine [Tylenol 1 tab PO Q6H PRN #12 tab 04/01/19 Unknown Rx /Codeine # 3 tab] Ondansetron [Zofran Odt] 4 mg PO Q8HR PRN #20 tab.rapdis 04/01/19 Unknown Rx ED Physical Exam - General Limitations: No Limitations General appearance: alert, in no apparent distress - Head Head exam: Present: atraumatic, normocephalic - Neck Neck exam: Present: normal inspection, full ROM. Absent: tenderness, meningis mus, lymphadenopathy - GI/Abdominal GI/Abdominal exam: Present: soft, normal bowel sounds. Absent: distended, tenderness, guarding, rebound, rigid, diminished bowel sounds - Extremities Exam Extremities exam: Present: normal inspection, full ROM - Back Exam Back exam: Present: normal inspection, full ROM. Absent: tenderness, CVA tenderness (R), CVA tenderness (L), muscle spasm, paraspinal tenderness, vertebral tenderness, rash noted - Neurological Exam Neurological exam: Present: alert, oriented X3, normal gait - Psychiatric Psychiatric exam: Present: normal affect, normal mood - Skin Skin exam: Present: warm, dry, intact, normal color. Absent: rash ED Course Vital Signs 04/01/19 14:50 Temperature 98.4 F Pulse Rate 102 H Respiratory 20 Rate Blood Pressure 184/112 - Reevaluation(s) Reevaluation #1: 04/01/19 17:59 Patient is speaking in full sentences with no signs of distress noted. ED Medical Decision Making - Lab Data Result diagrams: 04/01/19 15:32 04/01/19 15:32 - Medical Decision Making This is a 43-year-old female that presents with bilateral nephrolithiasis. Patient is stable and was examined by me. There is no abdominal tenderness. Negative signs of symptoms of appendicitis. Labs obtained. UA obtained. CT of abdomen obtained and dictated by the radiologist. Patient is notified of the report with no questions noted by the patient. Vital signs are stable prior to discharge. Patient received medical treatment in the ED which patient stated symptoms has resovled and subsided. Was instructed note to operate any machine ry due to possible drowsiness and stated someone will drive the patient home. A by mouth challenge has been obtained and patient tolerated well with no nausea vomiting. Patient was also instructed to Follow-up with a primary care doctor in 3-5 days or if symptoms worsen and continue return to emergency room as soon as possible. At time of discharge, the patient does not seem toxic or ill in appea ida. No acute signs of distress noted. Patient agrees to discharge treatment plan of care. No further questions noted by the patient. Critical care attestation.: If time is entered above; I have spent that time in minutes in the direct care of this critically ill patient, excluding procedure time. ED Disposition Clinical Impression: Nephrolithiasis, Nausea & vomiting Disposition: DC-01 TO HOME OR SELFCARE Is pt being admited?: No Does the pt Need Aspirin: No Condition: Stable Instructions: Kidney Stones (ED), Acute Nausea and Vomiting (ED) Additional Instructions: Follow-up with a primary care doctor in 3-5 days or if symptoms worsen and continue return to emergency room as soon as possible. Do not operate any machinery while taking Tylenol with codeine as this may cause drowsiness. Prescriptions: Acetaminophen/Codeine [Tylenol /Codeine # 3 tab] 1 tab PO Q6H PRN #12 tab PRN Reason: Pain , Severe (7-10) Ondansetron [Zofran Odt] 4 mg PO Q8HR PRN #20 tab.rapdis PRN Reason: Nausea Referrals: PRIMARY CAREMD [Primary Care Provider] - 3-5 Days CORNELIUS MCCONNELL MD [Staff Physician] - 3-5 Days [facility] [Outside] - 3-5 Days [facility] [Outside] - 3-5 Days Forms: Work/School Release Form(ED)
== END 2019-04-01 18:11 | disposition home or self-care (01) ==
LOC: ED 14:46
DX: N20.0 Calculus of kidney (principal); I10 Essential (primary) hypertension; E11.9 Type 2 diabetes mellitus without complications; K21.9 Gastro-esophageal reflux disease without esophagitis; F41.9 Anxiety disorder, unspecified; R11.2 Nausea with vomiting, unspecified; Z87.442 Personal history of urinary calculi; Z79.899 Other long term (current) drug therapy; Z98.51 Tubal ligation status; Z88.5 Allergy status to narcotic agent
CPT/HCPCS: 36415; 74176; 80053; 81001; 83690; 84703; 85025; 96361; 96374; 96375; 99284; J2270; J2405; J7030